=== PATIENT | female | born 1990 | race Caucasian/White ===

== ENCOUNTER → 2017-01-04 | Outpatient (CLI) | payer OTHER ==
--- NOTE | 2017-01-04 14:11 | CT ---
EXAMINATION TYPE: CT sinus wo con DATE OF EXAM: 01/04/2017 1:19 PM COMPARISON: NONE HISTORY: 26-year-old female with chronic sinusitis. Right side cheek lump. CT DLP: 525 mGycm Automated exposure control for dose reduction was used. TECHNIQUE: Noncontrast axial views of the paranasal sinuses were obtained. Coronal and sagittal recon structions performed. FINDINGS: There is mild mucosal thickening seen within the right frontal sinus, bilateral ethmoid air cells, an d both maxillary sinuses. There is no air-fluid level. Reactive becca- osteogenesis is not seen. There is no destruction of the osseous petersen of the paranasal sinuses. Opacification extends to include both osteomeatal complexes. There is leftward nasal septal deviation. The imaged brain, sella, skull base and orbits are normal in appearance. Mastoid air cells and middle ear cavities are well pneumatized. Reformatted images confirm above findings. IMPRESSION: 1. Mild chronic paranasal sinus disease involving the maxillary sinuses, ethmoid air cells, and infer ior right frontal sinus. 2. Leftward nasal septal deviation.
== END | disposition home or self-care (01) ==
LOC: RADCTMAIN 13:01
PROVIDERS: ATTEND Otolaryngology
DX: J32.0 Chronic maxillary sinusitis (principal); J32.1 Chronic frontal sinusitis; J32.2 Chronic ethmoidal sinusitis; J34.2 Deviated nasal septum
CPT/HCPCS: 70486

== ENCOUNTER 2017-08-22 09:54 | Day surgery (SDC) | payer MEDICAID, OTHER ==
[2017-08-17 10:15] VITALS: BMI 31.4
[~2017-08-22 09:54] MED LIST: DEXAMETHASONE SOD PHOSPHATE 10 MG/ML 1 ML VIAL IV ONE; DEXAMETHASONE SOD PHOSPHATE 4 MG/ML 1 ML VIAL IV ONE; FAMOTIDINE 20 MG/2 ML VIAL IV ONE; HYDROmorphone 0.5 MG/0.5 ML SYRINGE IVP PRN; MIDAZOLAM 2 MG/2 ML VIAL IV PRN; ONDANSETRON 4 MG/2 ML VIAL IVP ONE; SCOPOLAMINE 1.5MG/72HR PATCH TRANSDERM ONE; ceFAZolin 1,000 MG in DEXTROSE/WATER 1 50ML.BAG IV ONE
[2017-08-22] MEDS: OXYMETAZOLINE 0.05% NASL SPRAY 1 SPRAY BOTTLE NASAL ONE ×5 (10:22→10:43)
[2017-08-22] MEDS ORDERED: LIDOCAINE 1% 20 ML VIAL (10MG/ML) FOR IV START INTRADERMA ONE (10:38)
[2017-08-22] MEDS: LACTATED RINGERS 1,000 ML IV SCH ×2 (10:39→11:25)
[2017-08-22] MEDS ORDERED: PROPOFOL 10 MG/ML 20 ML VIAL IV ONE (11:25)
[2017-08-22] MEDS ORDERED: LIDOCAINE 1% INJ 10MG/ML (20 ML MDV) ONE (11:25)
[2017-08-22] MEDS ORDERED: HYDROmorphone (PF) 1 MG/ML ONE (11:25)
[2017-08-22] MEDS ORDERED: MIDAZOLAM 2 MG/2 ML VIAL ONE (11:25)
[2017-08-22] MEDS ORDERED: DEXAMETHASONE SOD PHOS (MDV) 100 MG/10 ML VIAL ONE (11:25)
[2017-08-22] MEDS ORDERED: SUCCINYLCHOLINE CHLORIDE 100 MG/5 ML SYR IV ONE (11:25)
[2017-08-22] MEDS ORDERED: fentaNYL (PF) 50 MCG/ML 2 ML AMP ONE (11:25)
[2017-08-22] MEDS ORDERED: LIDOCAINE 1%-EPI 1:100,000 20 ML VIAL SQ ONE ×2 (11:43)
[2017-08-22] MEDS ORDERED: BACITRACIN 500 UNIT/GM OINT 28.4 GM TUBE TOPICAL ONE (11:43)
--- NOTE | 2017-08-22 12:36 | P.OP ---
Date of Procedure: 08/22/17 Preoperative Diagnosis: Deviated nasal septum Inferior turbinate hypertrophy Chronic sinusitis Postoperative Diagnosis: Same Procedure(s) Performed: Septoplasty Outfracture and submucous resection of the inferior turbinates Bilateral endoscopic sinus surgery including bilateral maxillary antrostomy with removal of tissue from the maxillary sinuses, bilateral anterior and posterior ethmoidectomy, right frontal sinusotomy including balloon sinus plasty Anesthesia: SELVIN Surgeon: Mat Hu Estimated Blood Loss (ml): 10 Pathology: other (Nasal septal bone and cartilage and sinus contents) Condition: stable Disposition: PACU Indications for Procedure: This 26-year-old white female with a chronic history of nasal airway obstruction congestion recurrent and chronic sinusitis. Computed tomography scan showed deviated septum to the left as well as chronic sinusitis in the maxillary ethmoid and right frontal sinuses Operative Findings: Nasal septum deviated to the left obstructing approximate 75% of nasal airway, inferior turbinate hypertrophy bilaterally, mucosal thickening and small polyps in the maxillary sinuses bilaterally, mucosal thickening throughout the ethmoid sinuses bilaterally as well as mild right frontal coastal thickening, maxillary ostium are obstructed bilaterally Description of Procedure: The patient was brought in the operative suite and placed in a supine position. The patient underwent induction of general anesthesia with oral endotracheal intubation without difficulty. The patient was prepped and draped in usual aseptic fashion with the orbits in the operating field for entering throughout the case. The computed tomography scan was on the computer screen for review throughout the case also. 1% lidocaine with 1-1000 epinephrine was used submucosally both sides nasal septum lateral nasal wall and anterior tips the middle turbinates bilaterally. While this was taking vasoconstrictive effect the inferior turbinates were infractured with the [place] elevator. Partial submucous resection of the inferior turbinates was performed with the [place] wand loss ablating a portion of the submucosal soft tissue. The inferior turbinates were then outfractured with the [place] elevator. A left hemitransfixion incision was made with the mucoperichondrial mucoperiosteal flap on the left elevated. Bony cartilaginous junction was disarticulated and mucoperiosteal flap on the right was elevated. Bony nasal septal deformities were removed Janey forceps and an inferior cartilaginous strip was removed leaving a full 1.5 cm caudal strut. Checking intranasally this corrected the nasoseptal deformities and the hemitransfixion incision was closed with a running 4-0 chromic suture. Full 0 endoscopic evaluation was performed bilaterally. Beginning on the left the middle turbinate was medialized with the [place] elevator. The maxillary ostium was located with a ballpoint probe and infundibulotomy was performed followed by uncinectomy. The next ostium was enlarged at the expense of the anterior and posterior fontanelle taking care anteriorly not to injure the lacrimal bone. There were small polyps in the maxillary sinus which were removed under 30 endoscopic visualization with giraffe forceps. Anterior and posterior ethmoidectomy was then performed from anterior to posterior to Kiesha skull base and the roof the anterior ethmoid air cells were cleaned with up- biting Blakesley forceps from posterior to anterior. Nasal frontal duct was noted to be patent. Attention was then turned to the right where the procedures were followed as they were on the left. The nasal frontal duct on the right was obstructed and therefore was opened using ballpoint probe and giraffe forceps. There was mild mucosal thickening in the right frontal sinus after exploration. Again on the right medialization middle turbinate infundibulotomy uncinectomy maxillary antrostomy with removal of tissue from exercise sinuses anterior posterior ethmoidectomy were performed as they were on the left. Once this completed a pledget of standard nasal pore nasal dressing was placed in the middle meatus under direct visualization bilaterally and bilateral Hart airway splints coated bacitracin ointment were placed in nasal cavities and sutured trans-septally with a 4-0 nylon suture. Patient was suctioned in oral gastric fashion. The patient was then allowed to emerge from general anesthesia having tolerated procedure well was excised in the operating suite and transferred to the postop recovery area in satisfactory condition.
[2017-08-22 12:54] VITALS: TEMP 98.2
[2017-08-22] MEDS ORDERED: ONDANSETRON 4 MG/2 ML VIAL IVP ONE (12:54)
[2017-08-22] MEDS ORDERED: diphenhydrAMINE 50 MG/ML 1 ML VIAL IVP ONE (13:01)
[2017-08-22] MEDS ORDERED: IV FLUID CONTINUATION 1,000 ML IV ONE (14:00)
[2017-08-22] MEDS ORDERED: HYDROcodone/APAP 7.5-325MG 1 EACH TAB PO ONE (14:33)
[2017-08-22 14:40] VITALS: RESP 16
[2017-08-22 15:05] VITALS: BP 136/83
[2017-08-22 15:13] VITALS: PULSE 109
== END 2017-08-22 15:23 | disposition home or self-care (01) ==
LOC: OR 09:54
PROVIDERS: ATTEND Otolaryngology
DX: J34.2 Deviated nasal septum (principal); J34.3 Hypertrophy of nasal turbinates; J32.0 Chronic maxillary sinusitis; J32.2 Chronic ethmoidal sinusitis; J32.1 Chronic frontal sinusitis; J33.8 Other polyp of sinus; J45.909 Unspecified asthma, uncomplicated; G43.909 Migraine, unspecified, not intractable, without status migrainosus; Z79.2 Long term (current) use of antibiotics; Z79.1 Long term (current) use of non-steroidal anti-inflammatories (NSAID); Z79.52 Long term (current) use of systemic steroids; Z79.899 Other long term (current) drug therapy; Z91.011 Allergy to milk products; Z91.09 Other allergy status, other than to drugs and biological substances
CPT/HCPCS: 30520; 30140; 31267; 31255; 31276; 81025; 88305; 88300; J2250; J1200; J1100 ×2; J2405; J2001; J3010; J1170; J0690; J0330; J2704

== ENCOUNTER → 2017-12-12 | Outpatient (CLI) | payer MEDICAID, OTHER ==
[2017-12-12 13:00] LABS: T4, Free (Free Thyroxine) 0.79 ng/dL (0.78-2.19)
== END | disposition home or self-care (01) ==
LOC: LABWHC1 11:48
PROVIDERS: ATTEND Family Medicine
DX: E04.9 Nontoxic goiter, unspecified (principal)
CPT/HCPCS: 36415; 84439; 84443; 84481

== ENCOUNTER → 2017-12-20 | Outpatient (CLI) | payer MEDICAID, OTHER ==
--- NOTE | 2017-12-20 22:01 | US ---
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 GLAND SIZE: Right Lobe: 4.9 x 1.5 x 1.3 cm Overall Parenchyma: homogenous Left Lobe: 4.9 x 1.9 x 1.3 cm Overall Parenchyma: homogeneous Isthmus Thickness: 0.3 cm NODULES RIGHT: # of nodules measured on right: 0 LEFT: # of nodules measured on left: 0 ISTHMUS: # of nodules measured in the isthmus: 0 Bilateral neck scanned, no evidence of lymphadenopathy. Upper limits of normal in size seen bilaterally IMPRESSION: Prominent size of the thyroid gland. No focal nodule, no heterogeneity, and no increased vascularity.
== END | disposition home or self-care (01) ==
LOC: RADUSWWP 16:13
PROVIDERS: ATTEND Family Medicine
DX: E04.9 Nontoxic goiter, unspecified (principal)
CPT/HCPCS: 76536

== ENCOUNTER → 2018-06-30 | Outpatient (CLI) | payer MEDICAID, OTHER | END | disposition home or self-care (01) | LOC: LABWHC1 16:21 | PROVIDERS: ATTEND Obstetrics & Gynecology | DX: N91.2 Amenorrhea, unspecified (principal) | CPT/HCPCS: 36415; 84702 ==

== ENCOUNTER → 2018-08-08 | Outpatient (CLI) | payer MEDICAID, OTHER | END | disposition home or self-care (01) | LOC: LABWHC1 12:06 | PROVIDERS: ATTEND Obstetrics & Gynecology | DX: N97.0 Female infertility associated with anovulation (principal) | CPT/HCPCS: 36415; 84144 ==

== ENCOUNTER → 2018-09-29 | Outpatient (CLI) | payer MEDICAID, OTHER | LOC: LAB 10:12 → LABWHC1 10:16 | PROVIDERS: ATTEND Obstetrics & Gynecology | DX: N97.0 Female infertility associated with anovulation (principal) | CPT/HCPCS: 84144 ==

== ENCOUNTER → 2018-12-28 | Outpatient (CLI) | payer MEDICAID ==
--- NOTE | 2018-12-28 10:42 | US ---
EXAMINATION TYPE: US transvaginal DATE OF EXAM: 12/28/2018 COMPARISON: NONE CLINICAL HISTORY: N92.0 Menorrhagia. Heavy menses with large clots TECHNIQUE: Transvaginal (TV) Date of LMP: 2 weeks ago EXAM MEASUREMENTS: Uterus: 9.0 x 4.5 x 5.2 cm Endometrial Stripe: 1.1 cm Right Ovary: 3.5 x 1.8 x 2.0 cm Left Ovary: 4.1 x 2.3 x 2.8 cm 1. Uterus: Anteverted wnl 2. Endometrium: appears wnl 3. Right Ovary: multiple follicles 4. Left Ovary: complex mixed area left ovary = 2.1 x 1.5 x 2.0cm 5. Bilateral Adnexa: paraovarian cystic area right adnexa= 1.3 x 1.0 x 1.1cm 6. Posterior cul-de-sac: small amount of free fluid IMPRESSION: 1. Complex mixed lesion left ovary may reflect hemorrhagic cyst. Consider follow-up study in 6 weeks. Small amount of free fluid as discussed.
== END ==
LOC: RADUSWWP 09:30
PROVIDERS: ATTEND Obstetrics & Gynecology
DX: N83.9 Noninflammatory disorder of ovary, fallopian tube and broad ligament, unspecified (principal)
CPT/HCPCS: 76830

== ENCOUNTER → 2019-04-18 | Outpatient (CLI) | payer MEDICAID ==
[2019-04-18 10:29] LABS: HCT 38.4 % (34.0-46.0); HGB 13.1 gm/dL (11.4-16.0); MCH 29.9 pg (25.0-35.0); MCHC 34.2 g/dL (31.0-37.0); MCV 87.4 fL (80.0-100.0); Mean Platelet Volume 7.2; Platelet Count 345 k/uL (150-450); RBC 4.39 m/uL (3.80-5.40); RDW 13.9 % (11.5-15.5); WBC 13.2 k/uL (3.8-10.6)
[2019-04-18 16:31] LABS: African American GFR (CKD) 145.8 (60.0-200.0)
== END | disposition home or self-care (01) ==
LOC: LABWHC1 09:50
PROVIDERS: ATTEND Obstetrics & Gynecology
DX: Z34.81 Encounter for supervision of other normal pregnancy, first trimester (principal)
CPT/HCPCS: 36415; 82565; 82947; 85027; 86762; 86780; 86850; 86900; 86901; 87340

== ENCOUNTER → 2019-04-30 | Outpatient (CLI) | payer MEDICAID ==
--- NOTE | 2019-04-30 14:43 | US ---
EXAMINATION TYPE: Transabdominal DATE OF EXAM: 04/30/2019 11:04 AM COMPARISON: NONE CLINICAL HISTORY: O46.91 spotting first trimester. EXAM PERFORMED: Transabdominal (TA) EXAM MEASUREMENTS: GESTATIONAL AGE / DATING Physician Established: (10 weeks/5 days) EDC: 11/21/2019 Dates by LMP: (10 weeks/5 days) EDC: 11/21/2019 Dates by First Scan: No previous this is first scan Dates by Current Scan for: (11 weeks/3 days) EDC: 11/16/2019 MATERNAL ANATOMY Uterus: 12.9 x 7.3 x 8.4 cm Right Ovary: 3.5 x 1.8 x 1.8 cm Left Ovary: 2.9 x 2.3 x 3.5 cm Post CDS / Adnexa: wnl Presence of free fluid: none GESTATION / SURVEY CRL: 4.6 cm (11 weeks/3 days) Yolk Sac (normal less than 6mm): not seen Heart Rate: 161 bpm Rhythm: Normal IUP: Viable IUP Date of LMP: 02/14/2019 Viable IUP that correlates with LMP. IMPRESSION: Single viable intrauterine corresponding to ultrasound age of 11 weeks 3 days with estimate d date of delivery 11/16/2019
== END | disposition home or self-care (01) ==
LOC: RADUSWWP 10:46
PROVIDERS: ATTEND Obstetrics & Gynecology
DX: O46.91 Antepartum hemorrhage, unspecified, first trimester (principal); Z3A.11 11 weeks gestation of pregnancy
CPT/HCPCS: 76801

== ENCOUNTER → 2019-06-29 | Outpatient (CLI) | payer MEDICAID ==
--- NOTE | 2019-07-01 11:12 | US ---
EXAMINATION TYPE: US OB anatomy transabd DATE OF EXAM: 06/29/2019 COMPARISON: US HISTORY: 036.62X0 large for dates LGA TECHNIQUE: Transabdominal (TA) EXAM MEASUREMENTS: GESTATIONAL AGE / DATING Physician Established: (19 weeks/2 days) EDC: 11/21/2019 Dates by LMP: (19 weeks/2 days) EDC: 11/21/2019 Dates by First Scan: (20 weeks/0 days) EDC: 11/16/2019 Dates by Current Scan for: (19 weeks/0 days) EDC: 11/23/2019 SURVEY IUP: Single PLACENTA: Posterior PREVIA: No previa SANDY: 14.8 cm Normal CERVICAL LENGTH (transabdominal: norm > 3.0cm): 3.4 cm BIOMETRY PRESENTATION: Breech BPD: 4.3 cm 19 weeks / 0 days HC: 16.2 cm 19 weeks / 0 days AC: 14.1 cm 19 weeks / 4 days FL: 3.0 cm 19 weeks / 1 days ESTIMATED WEIGHT IN GRAMS: 285 grams ESTIMATED WEIGHT IN LBS/OZ: 0 lbs. 10 oz. WEIGHT PERCENTAGE BASED ON ESTABLISHED DATE: 47.2 % HC/AC: 1.14 Normal FL/AC: 21 Normal HEART RATE: 144 bpm RHYTHM: Normal ANATOMY SEEN (within normal limits): * Lateral Vent (< 1 cm) 0.7 cm * Cisterna Magna (< 1.1 cm) 0.4 cm * Nuchal Fold (< 0.6 cm) 0.3 cm * Cerebellum (varies with age) 1.9 cm Choroid Plexus (bilateral) Midline Falx Cavus Septi Pellucidi Four Chamber Heart Outflow tracts: LVOT/RVOT Stomach Situs Nose / Lips Diaphragm Kidneys (bilateral)= 4mm right renal pelvis Bladder Cord Insert Three Vessel Cord Longitudinal Spine Transverse Spine Arms (bilateral) Legs (bilateral) Single, viable IUP/ 4mm right renal pelvis, otherwise unremarkable study IMPRESSION: 1. Intrauterine gestation estimated at 19 weeks 0 days gestation based on the current ultrasound ty urements. Cardiac activity measures 144 bpm. 2. Minimal prominence of the renal pelvis. Follow-up can be performed. 3. Femur length to head circumference ratio is slightly elevated.
== END | disposition home or self-care (01) ==
LOC: RADUSWWP 15:32
PROVIDERS: ATTEND Obstetrics & Gynecology
DX: O36.62X0 Maternal care for excessive fetal growth, second trimester, not applicable or unspecified (principal); Z3A.19 19 weeks gestation of pregnancy
CPT/HCPCS: 76811

== ENCOUNTER → 2019-07-30 | Outpatient (CLI) | payer MEDICAID ==
--- NOTE | 2019-07-30 08:01 | US ---
EXAMINATION TYPE: US OB >= 14 wk fetus DATE OF EXAM: 07/30/2019 COMPARISON: Multiple US. Latest 06/29/19 CLINICAL HISTORY: Z36 Encounter for screening of mother Dilated renal pelvis seen on previous US. TECHNIQUE: Transabdominal (TA) GESTATIONAL AGE / DATING Physician Established: (23 weeks/5 days) EDC: 11/21/2019 Dates by LMP: (23 weeks/5 days) EDC: 11/21/2019 Dates by First Scan: (24 weeks/0 days) EDC: 11/16/2019 Dates by Current Scan: (23 weeks/6 days) EDC: 11/20/2019 BIOMETRY PRESENTATION: Vertex LIE: Longitudinal BPD: 5.9 cm 24 weeks / 0 days HC: 20.8 cm 22 weeks / 6 days AC: 19.8 cm 24 weeks / 3 days FL: 4.3 cm 23 weeks / 6 days ESTIMATED WEIGHT IN GRAMS: 655.2 grams ESTIMATED WEIGHT IN LBS/OZ: 1 lbs. 7 oz. WEIGHT PERCENTAGE BASED ON ESTABLISHED DATES: 57.7% HC/AC: 1.1 Normal FL/AC: 21.5 Normal HEART RATE: 144 bpm RHYTHM: Normal Dilated renal pelvis' noted again. Left kidney = 0.2 cm, Right Kidney = 0.35 cm IMPRESSION: Stable mild prominence of the left renal pelvis unchanged from prior exam.
== END ==
LOC: RADUSWWP 06:58
PROVIDERS: ATTEND Obstetrics & Gynecology
DX: O99.89 Other specified diseases and conditions complicating pregnancy, childbirth and the puerperium (principal); N28.89 Other specified disorders of kidney and ureter; Z3A.00 Weeks of gestation of pregnancy not specified
CPT/HCPCS: 76805

== ENCOUNTER → 2019-08-10 | Outpatient (CLI) | payer MEDICAID ==
[2019-08-10 08:23] LABS: HGB 10.4 gm/dL (11.4-16.0); MCH 29.4 pg (25.0-35.0); MCHC 32.6 g/dL (31.0-37.0); MCV 90.3 fL (80.0-100.0); Mean Platelet Volume 7.1; Platelet Count 224 k/uL (150-450); RBC 3.55 m/uL (3.80-5.40); RDW 12.8 % (11.5-15.5); WBC 9.5 k/uL (3.8-10.6)
[2019-08-10 12:12] LABS: ALT 10 U/L (8-44); AST 10 U/L (13-35); Alkaline Phosphatase 48 U/L (41-126); Bilirubin, Conjugated <0.20 mg/dL (0.20-0.40); Globulin 1.9 g/dL (1.6-3.3); Total Bilirubin 0.2 mg/dL (0.3-1.2); Total Protein 5.7 g/dL (6.2-8.2)
== END | disposition home or self-care (01) ==
LOC: LABWHC1 06:34
PROVIDERS: ATTEND Obstetrics & Gynecology
DX: Z34.82 Encounter for supervision of other normal pregnancy, second trimester (principal)
CPT/HCPCS: 36415; 80076; 82239; 82950; 85027

== ENCOUNTER → 2019-08-16 | Outpatient (CLI) | payer MEDICAID ==
[2019-08-16 11:33] LABS: Glucose 3 Hour, Gest 75 mg/dL
== END | disposition home or self-care (01) ==
LOC: LABWHC1 07:29
PROVIDERS: ATTEND Obstetrics & Gynecology
DX: O24.419 Gestational diabetes mellitus in pregnancy, unspecified control (principal)
CPT/HCPCS: 36415; 82951; 82952

== ENCOUNTER → 2019-08-28 | Outpatient (CLI) | payer MEDICAID ==
--- NOTE | 2019-08-28 10:37 | US ---
EXAMINATION TYPE: US OB >= 14 wk fetus DATE OF EXAM: 08/28/2019 COMPARISON: US 2018 CLINICAL HISTORY: Z36 follow up previous abn.US or re-evaluationRecheck kidneys TECHNIQUE: Transabdominal (TA) GESTATIONAL AGE / DATING Physician Established: (27 weeks/6 days) EDC: 11/21/2019 Dates by LMP: (27 weeks/6 days) EDC: 11/21/2019 Dates by First Scan: (28 weeks/4 days) EDC: Dates by Current Scan: (27 weeks/4 days) EDC: 11/23/2019 Beta HCG (if available): SURVEY IUP: Single PLACENTA: Posterior PREVIA: No Previa SANDY: 15.5 cm Normal CERVICAL LENGTH (transabdominal: norm > 3.0cm): 3.4 cm BIOMETRY PRESENTATION: Vertex BPD: 6.9 cm 27 weeks / 5 days HC: 25.7 cm 28 weeks / 0 days AC: 23.4 cm 27 weeks / 5 days FL: 5.3 cm 28 weeks / 0 days ESTIMATED WEIGHT IN GRAMS: 1136 grams ESTIMATED WEIGHT IN LBS/OZ: 2 lbs. 8 oz. WEIGHT PERCENTAGE BASED ON ESTABLISHED DATES: 37% HC/AC: 1.10 Normal FL/AC: 22.50 Normal HEART RATE: 132 bpm RHYTHM: Normal Viable single IUP measuring 27 weeks 4 days with a heart rate of 132bpm and an estimated delivery josette e of 11/23/2019, left renal pelvis = 0.4cm, right renal pelvis = 0.5cm IMPRESSION: Viable single IUP measuring 27 weeks 4 days with a heart rate of 132bpm and an estimated delivery josette e of 11/23/2019, left renal pelvis = 0.4cm, right renal pelvis = 0.5cm
== END | disposition home or self-care (01) ==
LOC: RADUSWWP 08:57
PROVIDERS: ATTEND Obstetrics & Gynecology
DX: Z36.9 Encounter for antenatal screening, unspecified (principal); Z3A.27 27 weeks gestation of pregnancy
CPT/HCPCS: 76805

== ENCOUNTER → 2019-08-28 | Outpatient (CLI) | payer MEDICAID ==
[2019-08-29 00:36] LABS: T4, Free (Free Thyroxine) 0.9 ng/dL (0.80-1.80)
[2019-08-29 01:19] LABS: Hemoglobin A1C 5.3 % (4.0-6.0)
== END | disposition home or self-care (01) ==
LOC: LABWHC1 16:12
PROVIDERS: ATTEND Internal Medicine
DX: O24.419 Gestational diabetes mellitus in pregnancy, unspecified control (principal); E03.9 Hypothyroidism, unspecified
CPT/HCPCS: 36415; 83036; 84439; 84443

== ENCOUNTER → 2019-09-28 | Outpatient (CLI) | payer MEDICAID ==
--- NOTE | 2019-09-28 22:48 | US ---
EXAMINATION TYPE: US OB >= 14 wk fetus DATE OF EXAM: 09/28/2019 COMPARISON: Prior ultrasound August 28, 2019 and older studies. CLINICAL HISTORY: O24.419 Gestational diabetes mellitus in Gestational diabetes TECHNIQUE: Transabdominal (TA) GESTATIONAL AGE / DATING Physician Established: (32 weeks/2 days) EDC: 11/21/19 Dates by LMP: (32 weeks/2 days) EDC: 11/21/19 Dates by First Scan: (33 weeks/0 days) EDC: 11/16/19 Dates by Current Scan: (33 weeks/5 days) EDC: 11/11/19 SURVEY IUP: Single PLACENTA: Posterior PREVIA: No Previa SANDY: 11.5 cm Normal CERVICAL LENGTH (transabdominal: norm > 3.0cm): 4.1 cm BIOMETRY PRESENTATION: Vertex LIE: Longitudinal BPD: 8.3 cm 33 weeks / 3 days HC: 29.8 cm 33 weeks / 0 days AC: 29.5 cm 33 weeks / 4 days FL: 6.7 cm 34 weeks / 4 days ESTIMATED WEIGHT IN GRAMS: 2256 grams ESTIMATED WEIGHT IN LBS/OZ: 5 lbs. 0 oz. WEIGHT PERCENTAGE BASED ON ESTABLISHED DATES: 83% HC/AC: 1.01 Normal FL/AC: 23% Normal HEART RATE: 140 bpm RHYTHM: Normal Single viable IUP 33wks/5days with MARVIN of 11/11/19. Left renal pelvis = 0.6cm and Right renal pelvi s = 0.5cm Single live intrauterine gestation is redemonstrated. Normal cephalic presentation is seen. No cervic al thinning. No placenta previa. Calculated amniotic fluid index within normal limits. biometry measurements concordant and felt within normal limits. Interval satisfactory growth noted. Persisten t prominence of bilateral renal pelvises is again demonstrated. IMPRESSION: As above.
== END | disposition home or self-care (01) ==
LOC: RADUSWWP 16:11
PROVIDERS: ATTEND Obstetrics & Gynecology
DX: O24.419 Gestational diabetes mellitus in pregnancy, unspecified control (principal)
CPT/HCPCS: 76805

== ENCOUNTER 2019-10-19 16:27 | Outpatient (CLI) | payer MEDICAID | END 2019-10-19 17:20 | disposition home or self-care (01) | LOC: FBPOP 16:27 | PROVIDERS: ATTEND Obstetrics & Gynecology | DX: O24.419 Gestational diabetes mellitus in pregnancy, unspecified control (principal); Z3A.00 Weeks of gestation of pregnancy not specified | CPT/HCPCS: 59025 ==

== ENCOUNTER → 2019-10-19 | Outpatient (CLI) | payer MEDICAID ==
--- NOTE | 2019-10-20 10:46 | US ---
EXAMINATION TYPE: US OB >= 14 wk fetus DATE OF EXAM: 10/19/2019 COMPARISON: None CLINICAL HISTORY: O36.63X0 LARGE FOR DATES Large for dates. TECHNIQUE: Transabdominal (TA) GESTATIONAL AGE / DATING Physician Established: (35 weeks/2 days) EDC: 11/21/2019 Dates by LMP: (35 weeks/2 days) EDC: 11/21/2019 Dates by First Scan: (11 weeks/3 days) EDC: 11/16/2019 Dates by Current Scan: (36 weeks/2 days) EDC: 11/14/2019 SURVEY IUP: Single PLACENTA: Posterior PREVIA: No Previa SANDY: 15.1 cm Normal CERVICAL LENGTH (transabdominal: norm > 3.0cm): Not well visualized due to shadowing. BIOMETRY PRESENTATION: Vertex BPD: 8.71cm 35 weeks / 2 days HC: 32.01 cm 36 weeks / 1 days AC: 32.52 cm 36 weeks / 4 days FL: 7.22 cm 37 weeks / 0 days ESTIMATED WEIGHT IN GRAMS: 2925 grams ESTIMATED WEIGHT IN LBS/OZ: 6 lbs. 7 oz. WEIGHT PERCENTAGE BASED ON ESTABLISHED DATES: 46% HC/AC: 8.98cm Normal FL/AC: 22% Normal HEART RATE: 142 bpm RHYTHM: Normal IMPRESSION: Limited survey, single viable intrauterine corresponding to ultrasound age 36 weeks 2 days with estimated date of delivery 11/14/2019 by today's exam
== END | disposition home or self-care (01) ==
LOC: RADUSWWP 15:37
PROVIDERS: ATTEND Obstetrics & Gynecology
DX: O36.63X0 Maternal care for excessive fetal growth, third trimester, not applicable or unspecified (principal); Z3A.36 36 weeks gestation of pregnancy
CPT/HCPCS: 76805

== ENCOUNTER 2019-10-22 15:54 | Outpatient (CLI) | payer MEDICAID | END 2019-10-22 16:44 | disposition home or self-care (01) | LOC: FBPOP 15:54 | PROVIDERS: ATTEND Obstetrics & Gynecology | DX: O24.419 Gestational diabetes mellitus in pregnancy, unspecified control (principal); Z3A.00 Weeks of gestation of pregnancy not specified | CPT/HCPCS: 59025 ==

== ENCOUNTER 2019-11-01 16:52 | Outpatient (CLI) | payer MEDICAID | END 2019-11-01 17:26 | disposition home or self-care (01) | LOC: FBPOP 16:52 | PROVIDERS: ATTEND Obstetrics & Gynecology | DX: O26.93 Pregnancy related conditions, unspecified, third trimester (principal); Z3A.37 37 weeks gestation of pregnancy | CPT/HCPCS: 59025 ==

== ENCOUNTER 2019-11-08 15:15 | Inpatient (IN) | payer MEDICAID ==
[2019-11-08 16:35] LABS: Basophils % (A) 0 %; Eosinophils # (A) 0.1 k/uL (0-0.7); Eosinophils % (A) 1 %; HCT 33.4 % (34.0-46.0); HGB 10.9 gm/dL (11.4-16.0); Lymphocytes # (A) 2.8 k/uL (1.0-4.8); Lymphocytes % (A) 24 %; MCH 28.4 pg (25.0-35.0); MCHC 32.7 g/dL (31.0-37.0); MCV 86.7 fL (80.0-100.0); Mean Platelet Volume 8.5; Monocytes # (A) 0.4 k/uL (0-1.0); Monocytes % (A) 4 %; Neutrophils # (A) 8.3 k/uL (1.3-7.7); Neutrophils % (A) 70 %; Platelet Count 238 k/uL (150-450); RBC 3.85 m/uL (3.80-5.40); RDW 13.5 % (11.5-15.5); WBC 11.9 k/uL (3.8-10.6)
[2019-11-08 16:37] LABS: Appearance,Urine Clear (Clear); Bilirubin,Urine Negative (Negative); Blood,Urine Negative (Negative); Color,Urine Light Yellow; Glucose,Urine (UA) Negative (Negative); Ketones,Urine Negative (Negative); Leukocyte Esterase,Urine Negative (Negative); Nitrite,Urine Negative (Negative); PH, Urine 6.5 (5.0-8.0); Protein,Urine Negative (Negative); Specific Gravity,Urine 1.012 (1.001-1.035); Urobilinogen,Urine <2.0 mg/dL (<2.0)
[2019-11-08 16:44] LABS: ALT 11 U/L (4-34); AST 21 U/L (14-36); African American GFR (CKD) >90 (>60 ml/min/1.73 sqM); Blood Urea Nitrogen 13 mg/dL (7-17); LDH 300 U/L (313-618); Non-African American GFR(CKD) >90 (>60 ml/min/1.73 sqM); Uric Acid 5.1 mg/dL (3.7-7.4)
[2019-11-08 16:51] LABS: Creatinine,Urine Random 59.1 mg/dL; Protein/Creatinine Ratio,Urine 0.135
--- NOTE | 2019-11-08 17:35 | P.HPOB ---
History of Present Illness H&P Date: 11/08/19 Chief Complaint: Hypertension, This patient is a pleasant 28 yr EDC 11/21/2019 estimated gestational age 38wks and 1/7 days who presented to L&D for a routine NST due to gestational DM and chronic HTN. Patient has been on Labetalol 100 BID throughout the and blood pressures have been normal. She also has been diagnosed with gestation DM and diet controlled followed by me and Dr. Cai. Plan was for induction next week, however BP is elevated times 2 today. Pre-eclampsia labs are normal without severe features. Due to persistent elevated BP however I am recommending admission and delivery in the morning, sooner if concerns. Patient also has a history of PROM at 35wks last and was on progesterone until 37wks. She was seeing repro-endo for infertility, but conceived after an HSG without assistance. Review of Systems Constitutional: Reports as per HPI Genitourinary: Reports Menstruation: Reports amenorrhea Past Medical History Past Medical History: Hypertension, Thyroid Disorder Additional Past Medical History / Comment(s): Gestational Diabetes, chronic HTN, hypothyroidism. History of Any Multi-Drug Resistant Organisms: None Reported Past Surgical History: Adenoidectomy Past Anesthesia/Blood Transfusion Reactions: No Reported Reaction Past Psychological History: No Psychological Hx Reported Smoking Status: Never smoker Past Alcohol Use History: None Reported - Past Family History Mother Family Medical History: No Reported History Medications and Allergies Home Medications Medication Instructions Recorded Confirmed Type Labetalol [Trandate] 100 mg PO BID 10/19/19 11/08/19 History Levothyroxine Sodium 25 mcg PO QAM 10/19/19 11/08/19 History Pnv No.95/Ferrous Fum/Folic AC 1 each PO HS 10/19/19 11/08/19 History [ Multivitamin Tablet] Allergies Allergy/AdvReac Type Severity Reaction Status Date / Time Environmental Allergy Mild See Comment Uncoded 11/08/19 15:33 Exam Intake and Output 11/08/19 11/08/19 11/08/19 06:59 14:59 22:59 Other: Weight 100.698 kg - OBG Physical Exam Abdomen: bowel sounds normal, no diffuse tenderness, no bruit present, no guarding noted, no hepatomegaly, no splenomegaly, no mass Vulva: both: normal Vagina: normal moisture, no discharge Cervix: no lesion (3 cm/ 50%/ -2), no discharge Uterus: enlarged (Fundal height is 38 cm) Results labs: B positive, Rubella indeterminate, HepB-RPR neg, glucola 150 with abnormal 3hr GTT, GBS negative Result Diagrams: 11/08/19 16:15 11/08/19 16:15 Abnormal Lab Results - Last 24 Hours (Table) 11/08/19 11/08/19 Range/Units 16:15 16:15 WBC 11.9 H (3.8-10.6) k/uL Hgb 10.9 L (11.4-16.0) gm/dL Hct 33.4 L (34.0-46.0) % Neutrophils # 8.3 H (1.3-7.7) k/uL Lactate Dehydrogenase 300 L (313-618) U/L Assessment and Plan Assessment: This is a pleasant 28 yr female 38 1/7wks with chronic HTN, gestation DM, hypothyroidism now with super-imposed gestational hypertension. No evidence of pre-eclampsia at this time. Plan per current recommendations is to proceed with delivery. I discussed with Luisana and she agrees. Will monitor closely overnite and proceed with induction in the morning, earlier if indication. (1) 38 weeks gestation of Current Visit: Yes Status: Acute Code(s): Z3A.38 - 38 WEEKS GESTATION OF SNOMED Code(s): 56265207 (2) Chronic hypertension affecting Current Visit: Yes Status: Acute Code(s): O10.919 - UNSP PRE-EXISTING HTN COMP , UNSP TRIMESTER SNOMED Code(s): 97568112 (3) Gestational diabetes Current Visit: Yes Status: Acute Code(s): O24.419 - GESTATIONAL DIABETES MELLITUS IN , UNSP CONTROL SNOMED Code(s): 75029469 (4) Rubella non-immune status, antepartum Current Visit: Yes Status: Acute Code(s): O99.89 - OTH DISEASES AND CONDITIONS COMPL PREG/CHLDBRTH; Z28.3 - UNDERIMMUNIZATION STATUS SNOMED Code(s): 299432055
[2019-11-08] MEDS: LABETALOL 100 MG TAB PO SCH (20:57)
[2019-11-09] MEDS ORDERED: TERBUTALINE 1 MG/ML VIAL SQ PRN (05:21)
[2019-11-09] MEDS ORDERED: METHYLERGONOVINE 0.2 MG/ML 1 ML AMP IM PRN (05:21)
[2019-11-09] MEDS ORDERED: OXYTOCIN 10 UNIT/ML 1 ML VIAL IM PRN (05:21)
[2019-11-09] MEDS ORDERED: LIDOCAINE 0.5% (PF) 5 MG/ML (50 ML SDV) SQ PRN (05:21)
[2019-11-09] MEDS ORDERED: OXYTOCIN 30 UNITS/500 ML NS 30 UNIT in SALINE 1 500ML.BAG IV SCH (05:21)
[2019-11-09] MEDS ORDERED: CARBOPROST TROMETHAMINE 250 MCG/ML 1 ML AMP IM PRN (05:21)
--- NOTE | 2019-11-09 05:47 | P.MSEPDOC ---
Presenting Problems - Arrival Data Date of Arrival on Unit: 11/08/19 Time of Arrival on Unit: 15:10 Mode of Transport: Ambulatory - Complaint OB-Reason for Admission/Chief Complaint: NST Comment: pt initially came in for ordered nst, 1st bp was elevated so ended up doing PIH workup Medical History - Information : 2 Para: 1 Term: 0 : 1 Abortions: Spontaneous or Elective: 0 Number of Living Children: 1 - Gestational Age Gestational Age by MARVIN (wks/days): 38 Weeks and 1 Days - History Complications: Chronic HTN, GDM Review of Systems - Review of Systems Constitutional: No problems Breast: No problems ENT: No problems Cardiovascular: No problems Respiratory: No problems Gastrointestinal: No problems Genitourinary: No problems Musculoskeletal: No problems Neurological: No problems Skin: No problems Vital Signs - Temperature Temperature: 97.3 F Temperature Source: Temporal Artery Scan - Pulse Right Brachial Pulse Rate: 78 Pulse Assessment Method: Automatic Cuff - Respirations Respiratory Rate: 18 Oxygen Delivery Method: Room Air - Blood Pressure Right Arm Blood Pressure: 121/58 Blood Pressure Mean: 79 Blood Pressure Source: Automatic Cuff Medical Screen Scoring (Pre) - Cervical Exam Dilation: Exam Deferred Effacement: Exam Deferred Membranes: Intact - Uterine Contractions Frequency: > 5 minutes apart = 1 Duration: > 40 seconds = 2 Intensity: N/A - Maternal Vital Signs Maternal Temperature: N/A Maternal Blood Pressure: Systolic >139 = 2 Signs of Preeclampsia: N/A Maternal Respirations: N/A - Maternal Trauma Maternal Trauma: N/A - Assessment - Baby A Baseline FHR: 125 Heart Rate - NICHD Category: Category I (Normal) = 0 NST: Reactive Position: N/A Station: N/A - Total Score - Baby A Total Score - Baby A: 5 - Total Score - Baby B Total Score - Baby B: 5 - Total Score - Baby C Total Score - Baby C: 5 - Level of Risk - Baby A Level of Risk - Baby A: Low (0-5) - Level of Risk - Baby B Level of Risk - Baby B: Low (0-5) - Level of Risk - Baby C Level of Risk - Baby C: Low (0-5) Physician Notification (Pre) - Physician Notified Physician Notified Date: 11/08/19 Physician Notified Time: 17:00 New Order Received: Yes - Notification Comment Comment: admitted pt overnight to watch bp's and start induction in AM Disposition - Disposition OB Disposition: Admit, LDRP Suite I agree with the RN Medical Screening Exam: Yes Risk & Benefit of care provided described in d/c instruction: Yes Diagnosis: GESTATIONAL HTN W/O SIGNIFICANT PROTEINURIA, THIRD TRIMESTER
[2019-11-09] MEDS: LACTATED RINGERS 1,000 ML IV SCH ×3 (06:11→16:00)
[2019-11-09] MEDS: LABETALOL 100 MG TAB PO SCH ×2 (06:23→20:33)
[2019-11-09 06:32] LABS: Basophils % (A) 0 %; Eosinophils # (A) 0.1 k/uL (0-0.7); Eosinophils % (A) 1 %; HCT 33.6 % (34.0-46.0); HGB 11.1 gm/dL (11.4-16.0); Lymphocytes # (A) 2.7 k/uL (1.0-4.8); Lymphocytes % (A) 28 %; MCH 28.7 pg (25.0-35.0); MCHC 33.2 g/dL (31.0-37.0); MCV 86.4 fL (80.0-100.0); Mean Platelet Volume 8.1; Monocytes # (A) 0.4 k/uL (0-1.0); Monocytes % (A) 4 %; Neutrophils # (A) 6.4 k/uL (1.3-7.7); Neutrophils % (A) 65 %; Platelet Count 222 k/uL (150-450); RBC 3.89 m/uL (3.80-5.40); RDW 13.8 % (11.5-15.5); WBC 9.8 k/uL (3.8-10.6)
[2019-11-09] MEDS ORDERED: fentaNYL (PF) 50 MCG/ML 5 ML AMP ONE (11:01)
[2019-11-09] MEDS ORDERED: SODIUM CHLORIDE 0.9% 100 ML BAG ONE (11:01)
[2019-11-09] MEDS ORDERED: ROPIVACAINE 5MG/ML 20ML VIAL ONE (11:01)
[2019-11-09 12:59] LABS: Hemoglobin A1C 5.3 % (4.0-6.0)
--- NOTE | 2019-11-09 18:28 | P.PROBDLV ---
Vaginal Delivery Note - . Vaginal Delivery Note: Normal vaginal delivery viable male infant Apgars are 7 and 8 delivery time is 1806 hrs. Please see dictated H&P for intimate details of this patient's admission. In brief summary this is a pleasant 28-year-old 2 para 1 female 38-2/7 weeks gestation who presented yesterday for nonstress test for hypertension and diabetes was noted to have significant blood pressure elevation of 162/78. Patient's preeclampsia labs are negative. However repeat blood pressure did show persistent elevation and I recommend she proceed with delivery.'s morning patient is 3 cm dilated is artificial rupture membranes for clear fluid. Labor is induced with Pitocin. Patient's labor progresses and she does get an epidural for pain control. Patient quickly gets to complete. She does push one time and pushes the head to the perineum. Posterior perineum was supporte d we have controlled delivery of the 's head over the intact perineum. Mouth and nares are bulb suctioned. There is no evidence of a nuchal cord. With gentle downward traction we then have deliver the anterior and posterior shoulder and rest this 's body. This is a viable male Apgars are 7 and 8 delivery time is 1806 hrs. does have some facial bruising but otherwise appears normal. The infant is late the mother's abdomen and the cord was doubly clamped and cut. Cenestin spontaneously delivered intact. Estimated blood loss is 100 mL. Inspection of the perineum shows a first-degree lacerations repaired with 3-0 Vicryl usual fashion excellent reapproximation is noted. All counts are correct 3. There are no complications.
[2019-11-09] MEDS ORDERED: diphenhydrAMINE 50 MG/ML 1 ML VIAL IVP PRN (18:30)
[2019-11-09] MEDS ORDERED: LANOLIN CREAM 5 GM TUBE TOPICAL PRN (18:30)
[2019-11-09] MEDS ORDERED: diphenhydrAMINE 25 MG CAP PO PRN (18:30)
[2019-11-09] MEDS ORDERED: BISACODYL 10 MG SUPP RECTAL PRN (18:30)
[2019-11-09] MEDS ORDERED: HYDROCORTISONE 2.5% RECTAL CREAM 30 GM TUBE RECTAL PRN (18:30)
[2019-11-09] MEDS ORDERED: OXYTOCIN 20 UNITS/1000 ML NS 1,000 ML IV SCH (18:30)
[2019-11-09] MEDS ORDERED: SIMETHICONE 80 MG CHEWABLE PO PRN (18:30)
[2019-11-09] MEDS ORDERED: WITCH HAZEL 1 EACH MED..PAD TOPICAL PRN (18:30)
[2019-11-09] MEDS ORDERED: BENZOCAINE/MENTHOL SPRAY 1 GM/SPRAY AEROSOL TOPICAL PRN (18:30)
[2019-11-09] MEDS ORDERED: ZOLPIDEM 5 MG TAB PO PRN (18:30)
[2019-11-09] MEDS ORDERED: MEASLES-MUMPS-RUBELLA VACC/PF 12,500 UNIT/0.5 ML VIAL SQ ONE (18:33)
[2019-11-09] MEDS: IBUPROFEN 600 MG TAB PO PRN (18:42)
[2019-11-09] MEDS: SENNOSIDES-DOCUSATE SODIUM 1 EACH TAB PO SCH ×2 (19:52→23:04)
[2019-11-09] MEDS: ACETAMINOPHEN TAB 325 MG TAB PO PRN (23:03)
[2019-11-10] MEDS: IBUPROFEN 600 MG TAB PO PRN ×4 (03:39→21:48)
[2019-11-10 08:58] VITALS: RESP 16
[2019-11-10] MEDS: SENNOSIDES-DOCUSATE SODIUM 1 EACH TAB PO SCH ×2 (09:00→19:43)
[2019-11-10] MEDS: LABETALOL 100 MG TAB PO SCH ×2 (09:00→21:46)
--- NOTE | 2019-11-10 09:32 | P.PNOBGVD ---
Subjective - Subjective Principal diagnosis: day 1 Interval history: Marj is doing well day 1. Her blood pressures are remaining much improved over yesterday. We'll continue labetalol. All questions are answered for her at this time. We'll likely discharge to home tomorrow with continued stability. Patient reports: Reports appetite normal, Reports voiding normally, Reports pain well controlled, Reports ambulating normally Bastian: doing well Objective - Latest Vital Signs Latest vital signs: Vital Signs Temp Pulse Resp BP Pulse Ox 11/10/19 08:00 98.6 F 90 16 115/60 11/10/19 04:00 98.0 F 82 15 121/65 98 11/10/19 00:00 98.2 F 94 16 131/71 96 11/09/19 20:30 99.0 F 88 16 135/77 11/09/19 20:00 99.2 F 90 16 117/68 11/09/19 19:30 98.7 F 97 16 126/66 11/09/19 19:15 98.9 F 95 16 127/68 11/09/19 19:00 82 15 133/68 11/09/19 18:45 82 16 132/77 11/09/19 18:30 97.4 F L 86 15 129/75 Intake and Output 11/09/19 11/10/19 11/10/19 22:59 06:59 14:59 Other: # Voids 2 - Exam Lungs: bilateral: normal Chest: Normal S1, Normal S2 Extremities: Present: normal Abdomen: Present: normal appearance, soft Uterus: Present: normal, firm
[2019-11-10] MEDS: ACETAMINOPHEN TAB 325 MG TAB PO PRN ×2 (12:41→19:42)
[2019-11-11] MEDS: IBUPROFEN 600 MG TAB PO PRN ×2 (07:15→13:03)
[2019-11-11] MEDS: LABETALOL 100 MG TAB PO SCH (09:16)
--- NOTE | 2019-11-11 10:25 | P.DS ---
Providers Date of admission: 11/08/19 16:58 Expected date of discharge: 11/11/19 Attending physician: Thai Cramer Primary care physician: Thai Cramer [facility] Hospital Course: Marj is doing very well post day 2. She is involuting, voiding and tolerating her diet. She voices no complaints and is stable for discharge this time. Heart regular, lungs clear, extremities without pain. Abdomen soft uterus is firm and lochia is reported light. Assessment day 2. Plan discharged home follow up with Dr. Garcia in 6 weeks. Prescription for breast pump was provided. Prescription for Motrin provided. Discharge instructions were thoroughly reviewed and all questions were answered for her prior to her discharge. Patient Condition at Discharge: Good Plan - Discharge Summary New Discharge Prescriptions: New Ibuprofen [Motrin] 600 mg PO Q6HR PRN #30 tab PRN Reason: Mild Pain Or Fever >= 100.5 No Action Labetalol [Trandate] 100 mg PO BID Pnv No.95/Ferrous Fum/Folic AC [ Multivitamin Tablet] 1 each PO HS Levothyroxine Sodium 25 mcg PO QAM Discharge Medication List Labetalol [Trandate] 100 mg PO BID 10/19/19 [History] Levothyroxine Sodium 25 mcg PO QAM 10/19/19 [History] Pnv No.95/Ferrous Fum/Folic AC [ Multivitamin Tablet] 1 each PO HS 10/19/19 [History] Ibuprofen [Motrin] 600 mg PO Q6HR PRN #30 tab 11/09/19 [Rx] Follow up Appointment(s)/Referral(s): Thai Cramer MD [Primary Care Provider] - 12/27/19 8:45 am Patient Instructions/Handouts: Vaginal Delivery (DC) Activity/Diet/Wound Care/Special Instructions: No intercourse or anything per vagina for 6 weeks. Please call if any fever, chills, excessive vaginal bleeding, and/or abdominal pain. Discharge Disposition: HOME SELF-CARE
[2019-11-11 15:47] VITALS: BP 137/88; PULSE 84; TEMP 98.5
[2019-11-11] MEDS: ACETAMINOPHEN TAB 325 MG TAB PO PRN (17:49)
[2019-11-11] MEDS: SENNOSIDES-DOCUSATE SODIUM 1 EACH TAB PO SCH ×2 (19:09→20:28)
== END 2019-11-11 20:00 | disposition home or self-care (01) | DRG 807 ==
LOC: FBPOP 15:15 → 4FBP 16:58
PROVIDERS: ADMIT Obstetrics & Gynecology; ATTEND Obstetrics & Gynecology
PROC: 10E0XZZ Delivery of Products of Conception, External Approach (ICD-10-PCS; principal; 2019-11-09)
PROC: 3E033VJ Introduction of Other Hormone into Peripheral Vein, Percutaneous Approach (ICD-10-PCS; 2019-11-09)
PROC: 10907ZC Drainage of Amniotic Fluid, Therapeutic from Products of Conception, Via Natural or Artificial Opening (ICD-10-PCS; 2019-11-09)
PROC: 0HQ9XZZ Repair Perineum Skin, External Approach (ICD-10-PCS; 2019-11-09)
PROC: 3E0R3BZ Introduction of Anesthetic Agent into Spinal Canal, Percutaneous Approach (ICD-10-PCS; 2019-11-09)
PROC: 3E0134Z Introduction of Serum, Toxoid and Vaccine into Subcutaneous Tissue, Percutaneous Approach (ICD-10-PCS; 2019-11-09)
DX: O10.92 Unspecified pre-existing hypertension complicating childbirth (principal); Z37.0 Single live birth; O24.420 Gestational diabetes mellitus in childbirth, diet controlled; O70.0 First degree perineal laceration during delivery; O99.284 Endocrine, nutritional and metabolic diseases complicating childbirth; E03.9 Hypothyroidism, unspecified; Z79.890 Hormone replacement therapy; Z79.899 Other long term (current) drug therapy; Z3A.38 38 weeks gestation of pregnancy; Z23 Encounter for immunization; Z28.3 Underimmunization status; Z87.51 Personal history of pre-term labor; Z88.9 Allergy status to unspecified drugs, medicaments and biological substances
CPT/HCPCS: 59025; 81003; 82565; 82570; 83036; 83615; 84156; 84450; 84460; 84520; 84550; 85025; 86850; 86900; 86901; 90707; 99215

== ENCOUNTER → 2020-04-25 | Outpatient (CLI) | payer MEDICAID ==
[2020-04-25 18:21] LABS: Hemoglobin A1C 5.2 % (4.0-6.0)
== END | disposition home or self-care (01) ==
LOC: LABWHC1 08:21
PROVIDERS: ATTEND Internal Medicine
DX: O24.419 Gestational diabetes mellitus in pregnancy, unspecified control (principal); E03.9 Hypothyroidism, unspecified
CPT/HCPCS: 36415; 83036; 84439; 84443

== ENCOUNTER → 2020-05-21 | Outpatient (CLI) | payer MEDICAID ==
--- NOTE | 2020-05-22 07:40 | MR ---
EXAMINATION TYPE: MR knee LT wo con DATE OF EXAM: 05/21/2020 COMPARISON: Outside left knee x-ray April 22, 2020. HISTORY: Left knee pain, injured 6 weeks ago TECHNIQUE: Multiplanar, multisequence images of the knee is performed without IV contrast. FINDINGS: MEDIAL MENISCUS: Anterior and posterior horns are intact without tear. LATERAL MENISCUS: Anterior and posterior horns are intact without tear. CRUCIATE LIGAMENTS: The anterior and posterior cruciate ligaments are intact and unremarkable. COLLATERAL LIGAMENTS: The medial collateral ligament and lateral collateral ligament complex are inta ct and unremarkable. EXTENSOR MECHANISM: Visualized quadriceps and patellar tendons are intact. EFFUSION: Tiny suprapatellar joint effusion. POPLITEAL CYST: Small popliteal/aguila cyst measuring 3.7 cm long axis sagittal image 25. TRICOMPARTMENT SPACES: Tricompartment joint spaces are maintained. No significant spurring is seen. CARTILAGE: Tricompartment articular cartilage is preserved. BONE MARROW SIGNAL: Small focal area of low T1 signal seen best on coronal images 14 and 15 and sagit eun image 15 with surrounding T2 hyperintensity consistent with small subchondral fracture and adjace nt edema. OTHER: No additional significant abnormality is appreciated. IMPRESSION: 1. There is nondisplaced radiooccult subchondral intra-articular fracture central anterior aspect of the tibial plateau with adjacent osseous contusion. 2. No meniscal or ligamentous tear is seen. 3. Incidental small popliteal cyst.
== END | disposition home or self-care (01) ==
LOC: RADMRIMAIN 15:33
PROVIDERS: ATTEND Orthopaedic Surgery
DX: S82.145A Nondisplaced bicondylar fracture of left tibia, initial encounter for closed fracture (principal)

== ENCOUNTER → 2020-08-20 | Outpatient (CLI) | payer MEDICAID ==
[2020-08-20 08:45] LABS: Basophils % (A) 0 %; Eosinophils # (A) 0.1 k/uL (0-0.7); Eosinophils % (A) 1 %; HCT 38.6 % (34.0-46.0); HGB 13.1 gm/dL (11.4-16.0); Lymphocytes # (A) 2.8 k/uL (1.0-4.8); Lymphocytes % (A) 28 %; MCH 30.9 pg (25.0-35.0); MCV 90.8 fL (80.0-100.0); Mean Platelet Volume 7.4; Monocytes # (A) 0.4 k/uL (0-1.0); Monocytes % (A) 4 %; Neutrophils # (A) 6.4 k/uL (1.3-7.7); Neutrophils % (A) 64 %; Platelet Count 291 k/uL (150-450); RBC 4.25 m/uL (3.80-5.40); RDW 12.5 % (11.5-15.5)
[2020-08-20 15:20] LABS: African American GFR (CKD) 137.6 (60.0-200.0); Albumin 4.5 g/dL (3.80-4.90); Albumin/Globulin Ratio 1.8 (1.60-3.17); Anion Gap 9.9 mmol/L (4.00-12.00); BUN/Creat Ratio 18.57 Ratio (12.00-20.00); Calcium 9.2 mg/dL (8.7-10.3); Carbon Dioxide 25.1 mmol/L (21.6-31.8); Chol/HDL Ratio 4.22; Globulin 2.5 g/dL (1.6-3.3); Non-African American GFR(CKD) 118.7 (60.0-200.0); Potassium 4.3 mmol/L (3.5-5.5); Total Bilirubin 0.3 mg/dL (0.3-1.2)
== END | disposition home or self-care (01) ==
LOC: LABWHC1 08:23
PROVIDERS: ATTEND Family Medicine
DX: Z00.00 Encounter for general adult medical examination without abnormal findings (principal)
CPT/HCPCS: 36415; 80053; 80061; 84443; 84481; 85025

== ENCOUNTER → 2020-09-18 | Outpatient (CLI) | payer MEDICAID ==
--- NOTE | 2020-09-18 15:30 | US ---
EXAMINATION TYPE: US transvaginal DATE OF EXAM: 09/18/2020 COMPARISON: US 12/28/2018 CLINICAL HISTORY: R10.2 PELVIC PAIN. TECHNIQUE: . Transvaginal sonographic images of the pelvis were acquired. Date of LMP: 3 weeks ago EXAM MEASUREMENTS: Uterus: 8.2 x 4.3 x 4.8 cm Endometrial Stripe: 0.5 cm Right Ovary: 2.3 x 1.2 x 1.2 cm Left Ovary: 3.8 x 3.4 x 3.8 cm 1. Uterus: Anteverted wnl 2. Endometrium: wnl 3. Right Ovary: wnl 4. Left Ovary: Cyst visualized measuring 3.0 x 3.0 x 2.9 cm 5. Bilateral Adnexa: wnl 6. Posterior cul-de-sac: wnl Heterogeneous uterus. No suspicious endometrial thickening. No free fluid. Left ovary has a 3.0 cm simple appearing thin-walled cyst. Right ovary shows tiny peripheral follicle s. IMPRESSION: Incidental 3.0 cm thin-walled cyst left ovary.
== END | disposition home or self-care (01) ==
LOC: RADUSWWP 14:44
PROVIDERS: ATTEND Obstetrics & Gynecology
DX: N83.202 Unspecified ovarian cyst, left side (principal)
CPT/HCPCS: 76830

== ENCOUNTER → 2020-10-30 | Outpatient (CLI) | payer MEDICAID ==
[2020-10-31 03:41] LABS: Clam IgE <0.10 kU/L; Egg White IgE <0.10 kU/L; Shrimp IgE <0.10 kU/L; Soybean IgE <0.10 kU/L
[2020-10-31 03:42] LABS: Scallop IgE <0.10 kU/L; Walnut IgE (Food) <0.10 kU/L
[2020-10-31 03:43] LABS: Codfish IgE <0.10 kU/L
[2020-10-31 03:44] LABS: Peanut IgE <0.10 kU/L
== END | disposition home or self-care (01) ==
LOC: LABWHC1 15:39
PROVIDERS: ATTEND Family Medicine
DX: R19.7 Diarrhea, unspecified (principal)
CPT/HCPCS: 36415; 82785; 86003

== ENCOUNTER → 2020-10-30 | Outpatient (CLI) | payer MEDICAID ==
--- NOTE | 2020-10-31 07:33 | US ---
EXAMINATION TYPE: US transvaginal DATE OF EXAM: 10/30/2020 COMPARISON: 09/18/2020 CLINICAL HISTORY: N83.20 left ovarian cyst. Hx of ovarian cyst. TECHNIQUE: Transvaginal (TV). EXAM MEASUREMENTS: Uterus: 8.1 x 4.7 x 4.8 cm Endometrial Stripe: .6 cm Right Ovary: 3.7 x 2.9 x 3.0 cm 1. Uterus: Anteverted wnl 2. Endometrium: wnl 3. Right Ovary: Cystic area 3.2 x 2.4 x 2.6 cm. 4. Left Ovary: Obscured by overlying bowel gas 5. Bilateral Adnexa: wnl 6. Posterior cul-de-sac: wnl IMPRESSION: 1. Persistent cystic lesion left ovary measuring 3.2 x 2.4 x 2.6 cm. Continued follow-up until resolu tion is advised.
== END | disposition home or self-care (01) ==
LOC: RADUSWWP 15:48
PROVIDERS: ATTEND Obstetrics & Gynecology
DX: N83.202 Unspecified ovarian cyst, left side (principal)
CPT/HCPCS: 76830

== ENCOUNTER 2020-11-12 07:22 | Day surgery (SDC) | payer MEDICAID ==
[2020-11-10 12:03] VITALS: BMI 33.6
[~2020-11-12 07:22] MED LIST changes: -DEXAMETHASONE SOD PHOSPHATE 10 MG/ML 1 ML VIAL IV ONE; -DEXAMETHASONE SOD PHOSPHATE 4 MG/ML 1 ML VIAL IV ONE; -FAMOTIDINE 20 MG/2 ML VIAL IV ONE; -HYDROmorphone 0.5 MG/0.5 ML SYRINGE IVP PRN; +LACTATED RINGERS 1,000 ML IV SCH; -MIDAZOLAM 2 MG/2 ML VIAL IV PRN; -ONDANSETRON 4 MG/2 ML VIAL IVP ONE; -SCOPOLAMINE 1.5MG/72HR PATCH TRANSDERM ONE; -ceFAZolin 1,000 MG in DEXTROSE/WATER 1 50ML.BAG IV ONE
[2020-11-12] MEDS ORDERED: LACTATED RINGERS 1,000 ML IV ONE (07:30)
[2020-11-12 07:48] VITALS: RESP 16; TEMP 98.4
[2020-11-12] MEDS ORDERED: PROPOFOL 10 MG/ML 20 ML VIAL IV ONE (08:02)
[2020-11-12] MEDS ORDERED: LIDOCAINE 1% INJ 10MG/ML (20 ML MDV) ONE (08:02)
--- NOTE | 2020-11-12 08:20 | P.PCN ---
Date of Procedure: 11/12/20 Procedure(s) Performed: BRIEF HISTORY: Patient is a 29-year-old pleasant female scheduled for an elective colonoscopy as a part of evaluation of intermittent lower abdominal pain associated with alternating diarrhea and constipation for the last 2 months duration. She had couple of episodes of rectal bleeding. She has no family history of inflammatory bowel disease. Procedure PERFORMED: Colonoscopy With random biopsy . PREOPERATIVE DIAGNOSIS: . Alternating diarrhea and constipation with intermitten t lower abdominal pain IV sedation per Anesthesia. PROCEDURE: After informed consent was obtained, the patient, was brought into the endoscopy unit. IV sedation was administered by Anesthesia under continuous monitoring. Digital rectal examination was normal. Initially the Olympus CF-160 flexible video colonoscope was then inserted in the rectum, gradually advanced into the cecum without any difficulty. Careful examination was performed as the scope was gradually being withdrawn. Ileocecal valve and the appendiceal orifice were visualized and appeared normal. Prep was excellent. terminal ileum was intubated and 20 cm visualized and appeared normal. Random biopsies were done from the terminal ileum. Mucosa of the cecum, ascending colon, transverse colon, descending colon, sigmoid colon, and rectum appeared normal. random biopsies were done from ascending and descending colon to rule out microscopic/collagenous colitis. Retroflexion was performed in the rectum and no lesions were seen. The patient tolerated the procedure well. IMPRESSION: Normal-appearing colon from rectum to cecum with no evidence of colitis or colorectal neoplasia . Normal terminal ileum. RECOMMENDATIONS: Findings of this examination were discussed with the patient as well as a family. She was advised to follow with the biopsy results. Her symptoms are suggestive of irritable bowel syndrome and she was advised to continue with a high-fiber diet and take fiber supplements on a regular basis..
[2020-11-12 08:59] VITALS: BP 126/70; PULSE 81
== END 2020-11-12 09:05 | disposition home or self-care (01) ==
LOC: ORWHC2ENDO 07:22
PROVIDERS: ATTEND Internal Medicine Gastroenterology
DX: K62.5 Hemorrhage of anus and rectum (principal); R19.4 Change in bowel habit; K59.00 Constipation, unspecified; I10 Essential (primary) hypertension; J45.909 Unspecified asthma, uncomplicated; Z98.890 Other specified postprocedural states; Z79.899 Other long term (current) drug therapy
CPT/HCPCS: 81025; 88305; 45380; J2001; J2704

== ENCOUNTER 2020-11-14 23:42 | Emergency (ER) | payer MEDICAID ==
[2020-11-15] VITALS: TEMP 99.2
[2020-11-15 00:38] LABS: Basophils % (A) 0 %; Eosinophils # (A) 0.2 k/uL (0-0.7); Eosinophils % (A) 2 %; HCT 37.6 % (34.0-46.0); HGB 13.1 gm/dL (11.4-16.0); Lymphocytes # (A) 4.3 k/uL (1.0-4.8); Lymphocytes % (A) 39 %; MCH 30.8 pg (25.0-35.0); MCHC 34.9 g/dL (31.0-37.0); MCV 88.2 fL (80.0-100.0); Mean Platelet Volume 7.3; Monocytes # (A) 0.5 k/uL (0-1.0); Monocytes % (A) 4 %; Neutrophils # (A) 5.9 k/uL (1.3-7.7); Neutrophils % (A) 53 %; Platelet Count 314 k/uL (150-450); RBC 4.26 m/uL (3.80-5.40)
[2020-11-15] MEDS ORDERED: HYDROmorphone 0.5 MG/0.5 ML SYRINGE IVP STA (00:42)
[2020-11-15] MEDS ORDERED: ONDANSETRON 4 MG/2 ML VIAL IVP STA (00:42)
[2020-11-15 00:43] LABS: Amorphous Sediment,Urine Few /hpf; Appearance,Urine Cloudy (Clear); Bacteria,Urine Rare /hpf; Bilirubin,Urine Negative (Negative); Blood,Urine Moderate (Negative); Color,Urine Yellow; Glucose,Urine (UA) Negative (Negative); Ketones,Urine Negative (Negative); Leukocyte Esterase,Urine Moderate (Negative); Mucus,Urine Rare /hpf; Nitrite,Urine Negative (Negative); PH, Urine 5.5 (5.0-8.0); Protein,Urine Trace (Negative); RBC,Urine 5 /hpf (0-5); Specific Gravity,Urine 1.028 (1.001-1.035); Squamous Epithelial Cell,Urine 12 /hpf (0-4); Urobilinogen,Urine <2.0 mg/dL (<2.0); WBC,Urine 49 /hpf (0-5)
[2020-11-15 00:59] LABS: ALT 17 U/L (4-34); AST 21 U/L (14-36); African American GFR (CKD) >90 (>60 ml/min/1.73 sqM); Albumin 4.5 g/dL (3.5-5.0); Alkaline Phosphatase 57 U/L (38-126); Amylase 46 U/L (30-110); Anion Gap 14 mmol/L; Blood Urea Nitrogen 14 mg/dL (7-17); Calcium 10.2 mg/dL (8.4-10.2); Carbon Dioxide 16 mmol/L (22-30); Chloride 107 mmol/L (98-107); Glucose 138 mg/dL (74-99); Lipase 160 U/L (23-300); Non-African American GFR(CKD) >90 (>60 ml/min/1.73 sqM); Potassium 4.3 mmol/L (3.5-5.1); Sodium 137 mmol/L (137-145); Total Bilirubin 0.3 mg/dL (0.2-1.3)
--- NOTE | 2020-11-15 01:13 | CT ---
EXAM: CT Abdomen and Pelvis With Intravenous Contrast CLINICAL HISTORY: ITS.REASON CT Reason: right sided abdominal pain TECHNIQUE: Axial computed tomography images of the abdomen and pelvis with intravenous contrast. CTDI is 27.57 mGy and DLP is 1254.3 mGy-cm. This CT exam was performed using one or more of the following dose reduction techniques: automated exposure control, adjustment of the mA and/or kV according to patient size, and/or use of iterative reconstruction technique. COMPARISON: 10/30/2020. FINDINGS: Lung bases: Unremarkable. No mass. No consolidation. Pleural space: No pleural effusions. Heart: Heart is normal in size. ABDOMEN: Liver: Mild fatty liver. The liver and the spleen enhance uniformly. Gallbladder and bile ducts: The gallbladder is mildly distended with inflammatory changes at the fundal region of the gallbladder. The possibility of early acute cholecystitis is raised. Ultrasound imaging of the right upper quadrant is highly advised for further assessment. No ductal dilation. Pancreas: See below. Spleen: See above. Adrenals: The adrenal glands, the head, body, tail of the pancreas are unremarkable. Kidneys and ureters: Both kidneys are shown to excrete contrast bilaterally without renal calculus or hydronephrosis per Stomach and bowel: Moderate quantity of stool throughout the colon. No bowel obstruction. No mucosal thickening. PELVIS: Appendix: The appendix is seen on coronal image 40 and is unremarkable. Bladder: The bladder is underdistended. Reproductive: The uterus is unremarkable. ABDOMEN and PELVIS: Intraperitoneal space: Unremarkable. No free air. No significant fluid collection. Bones/joints: No spondylolysis or spondylolisthesis. No acute fracture. No dislocation. Soft tissues: Ischiorectal fat is clean. Vasculature: Flow is demonstrated within the celiac, SMA, the renal arteries, and NBA. No abdominal aortic aneurysm. Lymph nodes: No pelvic or inguinal lymphadenopathy. IMPRESSION: The dominant finding in the current study is distention of the gallbladder. There is suggestion of minimal gallbladder wall thickening and some stranding within the fat surrounding the fundus of the gallbladder. The possibility of early acute cholecystitis is raised. Ultrasound imaging of the right upper quadrant is advised to follow.
--- NOTE | 2020-11-15 01:50 | US ---
EXAM: US Abdomen Complete CLINICAL HISTORY: Right upper quadrant abdominal pain. TECHNIQUE: Real-time ultrasound of the abdomen with image documentation. COMPARISON: 11/15/2020. FINDINGS: Liver: Liver measures 21.5 cm and is enlarged. No intrahepatic bile duct dilation. Gallbladder: No evidence of gallbladder wall thickening. The gallbladder is mildly hydropic. Gallbladder wall measures 0.2 cm. No gallstones. Common bile duct: Common bile duct measures 0.3 cm. No stones. No dilation. Pancreas: The pancreas is obscured by bowel gas. Kidneys: Right kidney measures 4.4 x 4.1 x 4.4 cm without renal calculus or hydronephrosis. Spleen: Unremarkable. No splenomegaly. Aorta: Unremarkable. No aneurysm. Inferior vena cava: Unremarkable. IMPRESSION: 1. The gallbladder is mildly hydropic without gallbladder wall thickening or gallstones. 2. No gallbladder wall thickening. 3. Negative ultrasound Kendall's sign. 4. Common bile duct is normal in caliber. 5. No hydronephrosis the right kidney. 6. Hepatomegaly.
--- NOTE | 2020-11-15 01:50 | ED ---
Abdominal Pain HPI - General Chief Complaint: Abdominal Pain Stated Complaint: RUQ pain Time Seen by Provider: 11/15/20 00:11 Source: patient Mode of arrival: ambulatory Limitations: no limitations - History of Present Illness Initial Comments: Very pleasant, 29yo female with history of HTN and gestational diabetes presenting for cc of right sided abdominal pain since 9PM. Pt states that she developed sharp right upper abdominal pain at 9PM, roughly 3-4 hours after eating. patient states it has become intolerable. She denies any chest pain shortness of breath she denies any vomiting but admits to nausea denies diarrhea fevers denies experiencing this in the past she states it does wrap around towards the right side. She denies dysuria urgency frequency hematuria or history of kidney stones. Patient states that she does have history of ovarian cysts she denies any lower dental pain or pelvic pain denies a vaginal bleeding or . Patient staets she has felt more "burpy" than normal. Patient has no additional complaints. - Related Data Home Medications Medication Instructions Recorded Confirmed Labetalol [Trandate] 100 mg PO BID 10/19/19 11/12/20 Control Pill (Unk Name) 1 tab PO HS 11/10/20 11/12/20 Multivitamins, Thera [Multivitamin 1 tab PO DAILY 11/10/20 11/12/20 (formulary)] Previous Rx's Medication Instructions Recorded Cephalexin [Keflex] 500 mg PO Q6HR 7 Days #28 cap 11/15/20 Pantoprazole Sodium [Protonix] 40 mg PO DAILY 4 Days #4 tablet. 11/15/20 Allergies Allergy/AdvReac Type Severity Reaction Status Date / Time Environmental Allergy Mild See Comment Uncoded 11/15/20 00:00 Review of Systems ROS Statement: Those systems with pertinent positive or pertinent negative responses have been documented in the HPI. ROS Other: All systems not noted in ROS Statement are negative. Past Medical History Past Medical History: Hypertension, Thyroid Disorder Additional Past Medical History / Comment(s): Gestational Diabetes, chronic HTN, hypothyroidism. IBS History of Any Multi-Drug Resistant Organisms: None Reported Past Surgical History: Adenoidectomy Additional Past Surgical History / Comment(s): sinus surgery Past Anesthesia/Blood Transfusion Reactions: No Reported Reaction Past Psychological History: No Psychological Hx Reported Smoking Status: Never smoker Past Alcohol Use History: Rare Past Drug Use History: None Reported - Past Family History Mother Family Medical History: No Reported History General Exam - General Exam Comments Initial Comments: General: The patient is awake and alert, in no distress Eye: +3 mm pupils are equal, round and reactive to light, extra-ocular movements are intact. No nystagmus. There is normal conjunctiva bilaterally. No signs of icterus. Ears, nose, mouth and throat: There are moist mucous membranes and no oral lesions. Neck: The neck is supple, there is no tenderness or JVD. Cardiovascular: There is a regular rate and rhythm. No murmur, rub or gallop is appreciated. Respiratory: Lungs are clear to auscultation, respirations are non-labored, breath sounds are equal. No wheezes, stridor, rales, or rhonchi. Gastrointestinal: Soft, non-distended, right upper/mid abdominal tenderness to palpation, (-) murphys sign, abdomen without masses or organomegaly noted. There is no rebound or guarding present. No CVA tenderness. Musculoskeletal: Normal ROM, no tenderness. Strength 5/5. Sensation intact. Radial pulses equal bilaterally 2+. Neurological: A&O x 3. CN II-XII intact grossly, There are no obvious motor or sensory deficits. Coordination appears grossly intact. Speech is normal. Skin: Skin is warm and dry and no rashes or lesions are noted. Psychiatric: Cooperative, appropriate mood & affect, normal judgment. Limitations: no limitations Course Vital Signs 11/14/20 11/15/20 23:55 02:29 Temperature 99.2 F Pulse Rate 93 87 Respiratory 22 18 Rate Blood Pressure 162/118 122/100 O2 Sat by Pulse 97 98 Oximetry Medical Decision Making - Medical Decision Making 29yo female with RUQ pain reproducible to palpation on exam. mild leukocytosis at 11. Bilirubin and AST ALT all within normal limits. Patient's pain controlled after [address] borderline findings of the gallbladder, without ability to rule out early cholecystitis ultrasound recommended. Ultrasound reveals no acute findings. With normal laboratory studies no fevers, gallbladder ultrasound within normal limits and patient's pain controlled this time feel patient is stable for discharge with outpatient general surgery or GI follow-up for suspected biliary colic/cold water dysfunction. No other acute findings identified. HCG (-). Patient agreeable to this care plan and discharge. Pt BP discussed she states she is anxious being in ER will watch at home and return for any sustained elevated readings/new symptoms. Attending Dr. Ching is agreeable to this care plan. - Lab Data Result diagrams: 11/15/20 00:29 11/15/20 00:29 Lab Results 11/15/20 11/15/20 11/15/20 Range/Units 00:29 00:29 00:29 WBC 11.0 H (3.8-10.6) k/uL RBC 4.26 (3.80-5.40) m/uL Hgb 13.1 (11.4-16.0) gm/dL Hct 37.6 (34.0-46.0) % MCV 88.2 (80.0-100.0) fL MCH 30.8 (25.0-35.0) pg MCHC 34.9 (31.0-37.0) g/dL RDW 12.0 (11.5-15.5) % Plt Count 314 (150-450) k/uL MPV 7.3 Neutrophils % 53 % Lymphocytes % 39 % Monocytes % 4 % Eosinophils % 2 % Basophils % 0 % Neutrophils # 5.9 (1.3-7.7) k/uL Lymphocytes # 4.3 (1.0-4.8) k/uL Monocytes # 0.5 (0-1.0) k/uL Eosinophils # 0.2 (0-0.7) k/uL Basophils # 0.0 (0-0.2) k/uL Sodium (137-145) mmol/L Potassium (3.5-5.1) mmol/L Chloride (98-107) mmol/L Carbon Dioxide (22-30) mmol/L Anion Gap mmol/L BUN (7-17) mg/dL Creatinine (0.52-1.04) mg/dL Est GFR (CKD-EPI)AfAm (>60 ml/min/1.73 sqM) Est GFR (CKD-EPI)NonAf (>60 ml/min/1.73 sqM) Glucose (74-99) mg/dL Calcium (8.4-10.2) mg/dL Total Bilirubin (0.2-1.3) mg/dL AST (14-36) U/L ALT (4-34) U/L Alkaline Phosphatase (38-126) U/L Total Protein (6.3-8.2) g/dL Albumin (3.5-5.0) g/dL Amylase (30-110) U/L Lipase (23-300) U/L Urine Color Yellow Urine Appearance Cloudy H (Clear) Urine pH 5.5 (5.0-8.0) Ur Specific [place] 1.028 (1.001-1.035) Urine Protein Trace H (Negative) Urine Glucose (UA) Negative (Negative) Urine Ketones Negative (Negative) Urine Blood Moderate H (Negative) Urine Nitrite Negative (Negative) Urine Bilirubin Negative (Negative) Urine Urobilinogen <2.0 (<2.0) mg/dL Ur Leukocyte Esterase Moderate H (Negative) Urine RBC 5 (0-5) /hpf Urine WBC 49 H (0-5) /hpf Ur Squamous Epith Cells 12 H (0-4) /hpf Amorphous Sediment Few H (None) /hpf Urine Bacteria Rare H (None) /hpf Urine Mucus Rare H (None) /hpf Urine HCG, Qual Not Detected (Not Detectd) 11/15/20 Range/Units 00:29 WBC (3.8-10.6) k/uL RBC (3.80-5.40) m/uL Hgb (11.4-16.0) gm/dL Hct (34.0-46.0) % MCV (80.0-100.0) fL MCH (25.0-35.0) pg MCHC (31.0-37.0) g/dL RDW (11.5-15.5) % Plt Count (150-450) k/uL MPV Neutrophils % % Lymphocytes % % Monocytes % % Eosinophils % % Basophils % % Neutrophils # (1.3-7.7) k/uL Lymphocytes # (1.0-4.8) k/uL Monocytes # (0-1.0) k/uL Eosinophils # (0-0.7) k/uL Basophils # (0-0.2) k/uL Sodium 137 (137-145) mmol/L Potassium 4.3 (3.5-5.1) mmol/L Chloride 107 (98-107) mmol/L Carbon Dioxide 16 L (22-30) mmol/L Anion Gap 14 mmol/L BUN 14 (7-17) mg/dL Creatinine 0.57 (0.52-1.04) mg/dL Est GFR (CKD-EPI)AfAm >90 (>60 ml/min/1.73 sqM) Est GFR (CKD-EPI)NonAf >90 (>60 ml/min/1.73 sqM) Glucose 138 H (74-99) mg/dL Calcium 10.2 (8.4-10.2) mg/dL Total Bilirubin 0.3 (0.2-1.3) mg/dL AST 21 (14-36) U/L ALT 17 (4-34) U/L Alkaline Phosphatase 57 (38-126) U/L Total Protein 8.0 (6.3-8.2) g/dL Albumin 4.5 (3.5-5.0) g/dL Amylase 46 (30-110) U/L Lipase 160 (23-300) U/L Urine Color Urine Appearance (Clear) Urine pH (5.0-8.0) Ur Specific [place] (1.001-1.035) Urine Protein (Negative) Urine Glucose (UA) (Negative) Urine Ketones (Negative) Urine Blood (Negative) Urine Nitrite (Negative) Urine Bilirubin (Negative) Urine Urobilinogen (<2.0) mg/dL Ur Leukocyte Esterase (Negative) Urine RBC (0-5) /hpf Urine WBC (0-5) /hpf Ur Squamous Epith Cells (0-4) /hpf Amorphous Sediment (None) /hpf Urine Bacteria (None) /hpf Urine Mucus (None) /hpf Urine HCG, Qual (Not Detectd) Disposition Clinical Impression: RUQ pain Disposition: HOME SELF-CARE Condition: Good Instructions (If sedation given, give patient instructions): Biliary Colic (ED), Low Fat Diet (ED), Abdominal Pain (ED) Additional Instructions: Please use medication as discussed. Please follow-up with family doctor in the next 2 days, highly recommend general surgery consultation. Please return to emergency room if the symptoms increase or worsen or for any other concerns. Prescriptions: Pantoprazole Sodium [Protonix] 40 mg PO DAILY 4 Days #4 tablet.dr Is patient prescribed a controlled substance at d/c from ED?: No Referrals: Adrian Koroma MD [Primary Care Provider] - 1-2 days Norberto Reyes MD [Medical Doctor] - 1-2 days Time of Disposition: 02:18
--- NOTE | 2020-11-15 01:56 | US ---
EXAM: US Pelvis Transabdominal and Transvaginal, Complete CLINICAL HISTORY: Pain. TECHNIQUE: Real-time complete transabdominal and transvaginal pelvic ultrasound with image documentation. Transvaginal imaging was used for better evaluation of the endometrium and adnexa. COMPARISON: No relevant prior studies available. FINDINGS: Uterus/cervix: 9.2 x 5.2 x 4.6 cm.. Normal endometrial stripe thickness at 4.5 mm. No myometrial mass. Right ovary: 3.6 x 2.2 x 1.7 cm. 14 x 11 x 19 mm cyst. No mass. Normal blood flow. Left ovary: 1.8 x 1.6 x 1.3 cm. No mass. Normal blood flow. Free fluid: No free fluid. IMPRESSION: Small right ovarian cyst. Otherwise unremarkable exam.
[2020-11-15] MEDS ORDERED: ACET/COD 300 MG/30 MG STARTER PACK 6 TAB BTL PO STA (02:15)
[2020-11-15] MEDS ORDERED: PANTOPRAZOLE 40 MG/10 ML VIAL IVP STA (02:15)
[2020-11-15 02:30] VITALS: BP 122/100; PULSE 87; RESP 18
== END 2020-11-15 02:30 | disposition home or self-care (01) ==
LOC: EC 23:42
DX: R10.11 Right upper quadrant pain (principal); R11.0 Nausea; I10 Essential (primary) hypertension; Z79.899 Other long term (current) drug therapy; Z90.89 Acquired absence of other organs; Z91.048 Other nonmedicinal substance allergy status
CPT/HCPCS: 36415; 80053; 82150; 83690; 85025; 81001; 81025; 87086; 93975; 76705; 76830; 74177; 99284; 96374; 96375 ×2; J2405; C9113; J1170; Q9967

== ENCOUNTER → 2020-11-24 | Outpatient (CLI) | payer MEDICAID ==
--- NOTE | 2020-11-24 09:45 | NM ---
EXAMINATION TYPE: NM hepatobiliary w CCK DATE OF EXAM: 11/24/2020 COMPARISON: Correlation ultrasound 11/15/2020 HISTORY: 29-year-old female R10.11, right upper quadrant pain TECHNIQUE: After the intravenous administration of 4.1 mCi Tc 99m Mebrofenin hepatobiliary scintigrap hy is performed. Immediate images post injection. FINDINGS: There is satisfactory initial accumulation of tracer by the liver. The gallbladder is visualized wit hin 6 minutes. The small bowel activity is noted within 46 minutes. At one hour CCK was administere d, patient was injected with 1.9 mcg of Kinevac, and gallbladder ejection fraction is calculated at 4 9 %, in the normal range. Therefore there is no scintigraphic evidence of cystic or common bile duct obstruction to suggest acute cholecystitis or gallbladder dyskinesia. IMPRESSION: No scintigraphic evidence for acute/chronic cholecystitis or biliary dyskinesia.
== END | disposition home or self-care (01) ==
LOC: RADNMMAIN 07:02
PROVIDERS: ATTEND Surgery
DX: R10.11 Right upper quadrant pain (principal)
CPT/HCPCS: 78227; A9537; J2805

== ENCOUNTER 2021-02-11 05:51 | Observation (INO) | payer MEDICAID ==
[2021-02-11] MEDS ORDERED: ONDANSETRON 4 MG/2 ML VIAL IVP STA (06:04)
[2021-02-11] MEDS ORDERED: HYDROmorphone 0.5 MG/0.5 ML SYRINGE IVP STA (06:04)
[2021-02-11] MEDS ORDERED: SODIUM CHLORIDE 0.9% 1,000 ML IV STA (06:04)
--- NOTE | 2021-02-11 06:17 | ED ---
Abdominal Pain HPI - General Chief Complaint: Abdominal Pain Stated Complaint: abd pain Time Seen by Provider: 02/11/21 06:00 Source: patient Mode of arrival: ambulatory Limitations: no limitations - History of Present Illness Initial Comments: 30yo female presenting for cc of RUQ abdominal pain. pt states that since last night she has had RUQ pain with nausea, vomiting. Denies diarrhea. pt states she has experienced this in the past and evaluated outpatient by Dr Reyes who stated that she would eventually need gallbladder out if this pain was persistent. Patient denies blood on stools/vomit, chest pain, dyspnea, pain with deep inspiration, denies lower abdominal pain/> Pt states sharp in nature of the RUQ. Patient denies additional complaints. Upon arrival she appears uncomfortable and BP is elevated, suspected to be situation (pain/ER visit and will monitor) - Related Data Home Medications Medication Instructions Recorded Confirmed Labetalol [Trandate] 100 mg PO BID 10/19/19 11/12/20 Control Pill (Unk Name) 1 tab PO HS 11/10/20 11/12/20 Multivitamins, Thera [Multivitamin 1 tab PO DAILY 11/10/20 11/12/20 (formulary)] Previous Rx's Medication Instructions Recorded Cephalexin [Keflex] 500 mg PO Q6HR 7 Days #28 cap 11/15/20 Pantoprazole Sodium [Protonix] 40 mg PO DAILY 4 Days #4 tablet. 11/15/20 Allergies Allergy/AdvReac Type Severity Reaction Status Date / Time Environmental Allergy Mild See Comment Uncoded 02/11/21 05:58 Review of Systems ROS Statement: Those systems with pertinent positive or pertinent negative responses have been documented in the HPI. ROS Other: All systems not noted in ROS Statement are negative. Past Medical History Past Medical History: Hypertension, Thyroid Disorder Additional Past Medical History / Comment(s): Gestational Diabetes, chronic HTN, hypothyroidism. IBS History of Any Multi-Drug Resistant Organisms: None Reported Past Surgical History: Adenoidectomy Additional Past Surgical History / Comment(s): sinus surgery Past Anesthesia/Blood Transfusion Reactions: No Reported Reaction Past Psychological History: No Psychological Hx Reported Smoking Status: Never smoker Past Alcohol Use History: Rare Past Drug Use History: None Reported - Past Family History Mother Family Medical History: No Reported History General Exam Limitations: no limitations Course Vital Signs 02/11/21 05:54 Temperature 97.9 F Pulse Rate 94 Respiratory 18 Rate Blood Pressure 162/103 O2 Sat by Pulse 98 Oximetry Medical Decision Making - Medical Decision Making changes to US now thickened and hydrops--labs reveal lactic acidosis otherwise stable. pt will be admitted for pain control, surgicla consultation. Dr Reyes consulted who is patient established surgeon-recommended abx. pt admitted appearing well. - Lab Data Result diagrams: 02/11/21 06:26 02/11/21 06:26 Lab Results 02/11/21 02/11/21 02/11/21 Range/Units 06:26 06:26 06:26 WBC 9.5 (3.8-10.6) k/uL RBC 4.36 (3.80-5.40) m/uL Hgb 13.7 (11.4-16.0) gm/dL Hct 38.5 (34.0-46.0) % MCV 88.3 (80.0-100.0) fL MCH 31.4 (25.0-35.0) pg MCHC 35.6 (31.0-37.0) g/dL RDW 12.2 (11.5-15.5) % Plt Count 313 (150-450) k/uL MPV 7.2 Neutrophils % 60 % Lymphocytes % 32 % Monocytes % 4 % Eosinophils % 2 % Basophils % 1 % Neutrophils # 5.7 (1.3-7.7) k/uL Lymphocytes # 3.0 (1.0-4.8) k/uL Monocytes # 0.4 (0-1.0) k/uL Eosinophils # 0.2 (0-0.7) k/uL Basophils # 0.1 (0-0.2) k/uL Sodium 139 (137-145) mmol/L Potassium 4.2 (3.5-5.1) mmol/L Chloride 107 (98-107) mmol/L Carbon Dioxide 20 L (22-30) mmol/L Anion Gap 12 mmol/L BUN 16 (7-17) mg/dL Creatinine 0.63 (0.52-1.04) mg/dL Est GFR (CKD-EPI)AfAm >90 (>60 ml/min/1.73 sqM) Est GFR (CKD-EPI)NonAf >90 (>60 ml/min/1.73 sqM) Glucose 118 H (74-99) mg/dL Plasma Lactic Acid Parth 2.6 H* (0.7-2.0) mmol/L Calcium 9.7 (8.4-10.2) mg/dL Total Bilirubin 0.2 (0.2-1.3) mg/dL AST 19 (14-36) U/L ALT 13 (4-34) U/L Alkaline Phosphatase 54 (38-126) U/L Total Protein 7.8 (6.3-8.2) g/dL Albumin 4.4 (3.5-5.0) g/dL Amylase 50 (30-110) U/L Lipase 173 (23-300) U/L Disposition Clinical Impression: RUQ pain, Thickening of wall of gallbladder, Gallbladder hydrops Disposition: ADMITTED IP TO THIS [facility] Condition: Stable Is patient prescribed a controlled substance at d/c from ED?: No Referrals: Adrian Koroma MD [Primary Care Provider] - 1-2 days Time of Disposition: 08:26 Decision to Admit Reason: Admit from EC Decision Date: 02/11/21 Decision Time: 08:
[2021-02-11 06:34] LABS: Basophils # (A) 0.1 k/uL (0-0.2); Basophils % (A) 1 %; Eosinophils # (A) 0.2 k/uL (0-0.7); Eosinophils % (A) 2 %; HCT 38.5 % (34.0-46.0); HGB 13.7 gm/dL (11.4-16.0); Lymphocytes % (A) 32 %; MCH 31.4 pg (25.0-35.0); MCHC 35.6 g/dL (31.0-37.0); MCV 88.3 fL (80.0-100.0); Mean Platelet Volume 7.2; Monocytes # (A) 0.4 k/uL (0-1.0); Monocytes % (A) 4 %; Neutrophils # (A) 5.7 k/uL (1.3-7.7); Neutrophils % (A) 60 %; Platelet Count 313 k/uL (150-450); RBC 4.36 m/uL (3.80-5.40); RDW 12.2 % (11.5-15.5); WBC 9.5 k/uL (3.8-10.6)
[2021-02-11 07:21] LABS: ALT 13 U/L (4-34); AST 19 U/L (14-36); African American GFR (CKD) >90 (>60 ml/min/1.73 sqM); Albumin 4.4 g/dL (3.5-5.0); Alkaline Phosphatase 54 U/L (38-126); Amylase 50 U/L (30-110); Anion Gap 12 mmol/L; Blood Urea Nitrogen 16 mg/dL (7-17); Calcium 9.7 mg/dL (8.4-10.2); Carbon Dioxide 20 mmol/L (22-30); Chloride 107 mmol/L (98-107); Glucose 118 mg/dL (74-99); Lipase 173 U/L (23-300); Non-African American GFR(CKD) >90 (>60 ml/min/1.73 sqM); Potassium 4.2 mmol/L (3.5-5.1); Sodium 139 mmol/L (137-145); Total Bilirubin 0.2 mg/dL (0.2-1.3); Total Protein 7.8 g/dL (6.3-8.2)
--- NOTE | 2021-02-11 07:32 | US ---
EXAMINATION TYPE: US gallbladder DATE OF EXAM: 02/11/2021 COMPARISON: 11/15/2020 CLINICAL HISTORY: RUQ Pain. patient is extremely nauseous and belching throughout exam, can barley to uch her abd without causing pain and vomiting EXAM MEASUREMENTS: Liver Length: 20.9 cm Gallbladder Wall: 0.3 cm CBD: 0.4 cm Right Kidney: 13.6 x 4.8 x 4.2 cm patient very tender to touch and could barley apply pressure without her feeling sick Pancreas: wnl Liver: enlarged Gallbladder: hydropic at 14.1cm, no obvious stones seen Evidence for sonographic Kendall's sign: YES CBD: wnl Right Kidney: wnl IMPRESSION: 1. gallbladder hydrops with mild gallbladder wall thickening. No definite cholelithiasis or perichole cystic fluid. CBD is within normal dates. 2. Hepatomegaly
[2021-02-11] MEDS ORDERED: FAMOTIDINE 20 MG/2 ML VIAL IV STA (07:50)
[2021-02-11] MEDS ORDERED: HYDROmorphone 0.2 MG/1 ML SYRINGE IVP STA (08:18)
[2021-02-11] MEDS ORDERED: NALOXONE 0.4 MG/ML 1 ML VIAL IV PRN (08:26)
[2021-02-11 09:30] LABS: Appearance,Urine Cloudy (Clear); Bacteria,Urine Rare /hpf; Bilirubin,Urine Negative (Negative); Blood,Urine Small (Negative); Color,Urine Light Yellow; Glucose,Urine (UA) Negative (Negative); Ketones,Urine Negative (Negative); Leukocyte Esterase,Urine Small (Negative); Nitrite,Urine Negative (Negative); PH, Urine 6.5 (5.0-8.0); Protein,Urine Negative (Negative); RBC,Urine 8 /hpf (0-5); Squamous Epithelial Cell,Urine 19 /hpf (0-4); Urobilinogen,Urine <2.0 mg/dL (<2.0); WBC,Urine 4 /hpf (0-5)
[2021-02-11] MEDS ORDERED: IV FLUID CONTINUATION 1,000 ML IV ONE (10:16)
[2021-02-11] MEDS ORDERED: ONDANSETRON 4 MG/2 ML VIAL ONE (10:25)
[2021-02-11] MEDS ORDERED: HEPARIN SODIUM,PORCINE/PF 5,000 UNIT/0.5 ML SYRINGE SQ ONE (10:26)
[2021-02-11] MEDS ORDERED: SCOPOLAMINE 1.5MG/72HR PATCH TRANSDERM ONE (10:28)
[2021-02-11] MEDS ORDERED: DEXAMETHASONE SOD PHOSPHATE 4 MG/ML 1 ML VIAL IVP ONE (10:28)
[2021-02-11] MEDS ORDERED: ACETAMINOPHEN TAB 500 MG TAB PO ONE (10:32)
[2021-02-11] MEDS ORDERED: HEPARIN SODIUM,PORCINE 5,000 UNIT/ML 1 ML VIAL SQ ONE (10:33)
[2021-02-11] MEDS ORDERED: ACETAMINOPHEN TAB 500 MG TAB ONE (10:36)
--- NOTE | 2021-02-11 10:38 | P.GSHP ---
History of Present Illness H&P Date: 02/11/21 Chief Complaint: right upper quadrant abdominal pain 30-year-old female known to our service. Patient was seen in November with similar complaints of right upper quadrant abdominal pain. She has had multiple attacks since that time. Pain is typically right upper quadrant with radiation to the back. She has had associated symptoms of nausea and vomiting. No lower abdominal pain. Normal bowel habits. No change in the color of her skin urine or stool. Previous workup included CAT scan abdomen and pelvis, ultrasound, HIDA scan. These studies showed a distended gallbladder with mild inflammation. No stones were seen. Ejection fraction was normal. This admission the patient had an ultrasound again which showed hydrops and a thickened gallbladder wall without stones. Patient states she was very tender in that area when she had her ultrasound performed. Liver enzymes are normal. White blood cell count is normal. Lactic acid is elevated. - Review of Systems Comment: The patient denies any acute changes in vision or hearing, no dysphagia or odynophagia, no chest pain or shortness of breath, no dysuria or hematuria, no headache, no runny nose, no rectal bleeding or melena, no unexplained weight loss Past Medical History Past Medical History: Hypertension, Thyroid Disorder Additional Past Medical History / Comment(s): Gestational Diabetes, chronic HTN, hypothyroidism. IBS History of Any Multi-Drug Resistant Organisms: None Reported Past Surgical History: Adenoidectomy Additional Past Surgical History / Comment(s): sinus surgery Past Anesthesia/Blood Transfusion Reactions: No Reported Reaction Smoking Status: Never smoker - Past Family History Mother Family Medical History: No Reported History Medications and Allergies Home Medications Medication Instructions Recorded Confirmed Type Labetalol [Trandate] 100 mg PO BID 10/19/19 02/11/21 History Acetaminophen-Codeine 300-30mg 1 tab PO Q6H PRN 02/11/21 02/11/21 History [Tylenol w/codeine #3] Norethindrone-E.estradiol-Iron 1 tab PO HS 02/11/21 02/11/21 History [Aurovela Fe 1.5 mg-30 Mcg Tab] Sertraline HCl [Zoloft] 50 mg PO HS 02/11/21 02/11/21 History Allergies Allergy/AdvReac Type Severity Reaction Status Date / Time Environmental Allergy Mild CONGESTION Uncoded 02/11/21 10:26 Surgical - Exam Vital Signs Temp Pulse Resp BP Pulse Ox 97.9 F 94 18 162/103 98 02/11/21 05:54 02/11/21 05:54 02/11/21 05:54 02/11/21 05:54 02/11/21 05:54 Physical exam: General: Well-developed, well-nourished HEENT: Normocephalic, sclerae nonicteric Abdomen: Right upper quadrant tenderness present, nondistended Extremities: No edema Neuro: Alert and oriented Results - Labs 02/11/21 06:26 02/11/21 06:26 Abnormal Lab Results - Last 24 Hours (Table) 02/11/21 02/11/21 02/11/21 Range/Units 06:26 06:26 06:26 Carbon Dioxide 20 L (22-30) mmol/L Glucose 118 H (74-99) mg/dL Plasma Lactic Acid Parth 2.6 H* (0.7-2.0) mmol/L Urine Appearance Cloudy H (Clear) Urine Blood Small H (Negative) Ur Leukocyte Esterase Small H (Negative) Urine RBC 8 H (0-5) /hpf Ur Squamous Epith Cells 19 H (0-4) /hpf Urine Bacteria Rare H (None) /hpf Diabetes panel 02/11/21 Range/Units 06:26 Sodium 139 (137-145) mmol/L Potassium 4.2 (3.5-5.1) mmol/L Chloride 107 (98-107) mmol/L Carbon Dioxide 20 L (22-30) mmol/L BUN 16 (7-17) mg/dL Creatinine 0.63 (0.52-1.04) mg/dL Glucose 118 H (74-99) mg/dL Calcium 9.7 (8.4-10.2) mg/dL AST 19 (14-36) U/L ALT 13 (4-34) U/L Alkaline Phosphatase 54 (38-126) U/L Total Protein 7.8 (6.3-8.2) g/dL Albumin 4.4 (3.5-5.0) g/dL Calcium panel 02/11/21 Range/Units 06:26 Calcium 9.7 (8.4-10.2) mg/dL Albumin 4.4 (3.5-5.0) g/dL Pituitary panel 02/11/21 Range/Units 06:26 Sodium 139 (137-145) mmol/L Potassium 4.2 (3.5-5.1) mmol/L Chloride 107 (98-107) mmol/L Carbon Dioxide 20 L (22-30) mmol/L BUN 16 (7-17) mg/dL Creatinine 0.63 (0.52-1.04) mg/dL Glucose 118 H (74-99) mg/dL Calcium 9.7 (8.4-10.2) mg/dL Adrenal panel 02/11/21 Range/Units 06:26 Sodium 139 (137-145) mmol/L Potassium 4.2 (3.5-5.1) mmol/L Chloride 107 (98-107) mmol/L Carbon Dioxide 20 L (22-30) mmol/L BUN 16 (7-17) mg/dL Creatinine 0.63 (0.52-1.04) mg/dL Glucose 118 H (74-99) mg/dL Calcium 9.7 (8.4-10.2) mg/dL Total Bilirubin 0.2 (0.2-1.3) mg/dL AST 19 (14-36) U/L ALT 13 (4-34) U/L Alkaline Phosphatase 54 (38-126) U/L Total Protein 7.8 (6.3-8.2) g/dL Albumin 4.4 (3.5-5.0) g/dL Assessment and Plan (1) Acalculous cholecystitis Narrative/Plan: 30-year-old female with studies suggesting acute acalculous cholecystitis. Options discussed with patient. We decided to proceed with laparoscopic, possible open cholecystectomy at this time. Risks of bleeding, infection, bile leak, bile duct injury, retained common bile duct stone, trocar injury, conversion to an open procedure, hernia, anesthesia related complications were reviewed. The patient understands and wishes to proceed. Current Visit: Yes Status: Acute Code(s): K81.9 - CHOLECYSTITIS, UNSPECIFIED SNOMED Code(s): 16487088
[2021-02-11] MEDS ORDERED: MIDAZOLAM 2 MG/2 ML VIAL ONE (11:26)
[2021-02-11] MEDS ORDERED: ROCURONIUM 10 MG/ML (5 ML VIAL) IV ONE (11:26)
[2021-02-11] MEDS ORDERED: SUCCINYLCHOLINE CHLORIDE 100 MG/5 ML SYR IV ONE (11:26)
[2021-02-11] MEDS ORDERED: LIDOCAINE 1% INJ 10MG/ML (20 ML MDV) ONE (11:26)
[2021-02-11] MEDS ORDERED: KETOROLAC 15 MG/ML 1 ML VIAL ONE (11:26)
[2021-02-11] MEDS ORDERED: fentaNYL (PF) 50 MCG/ML 2 ML AMP ONE (11:26)
[2021-02-11] MEDS ORDERED: PROPOFOL 10 MG/ML 20 ML VIAL IV ONE (11:26)
[2021-02-11] MEDS ORDERED: GLYCOPYRROLATE 0.2 MG/ML 2 ML VIAL ONE (11:26)
[2021-02-11] MEDS ORDERED: NEOSTIGMINE 1 MG/ML 10 ML VIAL ONE (11:26)
[2021-02-11] MEDS ORDERED: LIDOCAINE 1% INJ 10MG/ML (20 ML MDV) SQ ONE (11:27)
[2021-02-11] MEDS ORDERED: ONDANSETRON 4 MG/2 ML VIAL IVP PRN (12:32)
--- NOTE | 2021-02-11 12:37 | P.OP ---
Date of Procedure: 02/11/21 Procedure(s) Performed: PREOPERATIVE DIAGNOSIS: Acute acalculous cholecystitis POSTOPERATIVE DIAGNOSIS: Acute calculus cholecystitis PROCEDURE: Laparoscopic cholecystectomy SURGEON: Amy EBL: Minimal see anesthesia record ANESTHESIA: Gen. COMPLICATIONS: None OPERATIVE PROCEDURE: The patient was brought and placed on the operating room table in the supine position. The patient was placed under general anesthesia at that time. The abdomen was prepped and draped in the usual sterile fashion. A small vertical infraumbilical incision was made. The fascia was grasped with the Rosa forceps. The fascia was retracted anteriorly. The Veress needle was advanced into the peritoneal cavity. The saline drop test was normal. Insufflation took place up to 15 mmHg. A 5 mm optical trocar was advanced and the peritoneal cavity. 2 additional 5 mm trochars were placed in the right upper quadrant under direct visualization. A 12 mm trocar was advanced into the epigastric incision site. The gallbladder was distended with a thickened gallbladder wall. The gallbladder was retracted superiorly and laterally. The peritoneum overlying the infundibulum was bluntly dissected. The patient's cystic duct was visualized. The junction between the cystic duct common and hepatic duct was identified. The cystic duct was then divided after placement of 3 12 mm clips on the patient's side and one on the specimen side. The cystic artery was identified and clipped as well. A small vessel was seen along the gallbladder fossa and clipped as well. The gallbladder was then removed from the liver bed using electrocautery. The gallbladder was then removed from the epigastric trocar site with an Endo Catch bag. The gallbladder fossa was irrigated with saline. There was no evidence of any bleeding or biliary drainage seen. The fascia at the 12 millimeter site was closed using a Clive- Agustín 0 Vicryl stitch. The trochars were then removed. The skin at all 4 sites was closed using a 4-0 Monocryl stitch. Skin glue was utilized on the incision sites. At the end of this procedure the sponge and needle counts were correct. I opened the specimen on the back table. A stone was palpated to be impacted in the cystic duct. The stone measured about 8 mm in size and was sent with the specimen. Pictures were provided to family. DISPOSITION: Stable to the recovery room
[2021-02-11] MEDS: HYDROmorphone 1 MG/ML 1 ML SYRINGE IVP ONE ×3 (12:44→13:33)
[2021-02-11] MEDS: diphenhydrAMINE 50 MG/ML 1 ML VIAL IVP ONE ×2 (12:45→13:58)
[2021-02-11] MEDS ORDERED: SODIUM CHLORIDE 0.9% 1,000 ML IV ONE ×2 (13:02)
[2021-02-11] MEDS ORDERED: ACETAMINOPHEN IV (For NPO) 1,000 MG/100 ML VIAL IVPB ONE (13:49)
[2021-02-11] MEDS: DOCUSATE 100 MG CAP PO SCH ×2 (14:37→20:42)
[2021-02-11] MEDS: PANTOPRAZOLE 40 MG/10 ML VIAL IV SCH (14:38)
[2021-02-11] MEDS: PIPERACILLIN-TAZOBACTAM 3.375 GM in SODIUM CHLORIDE 0.9% 100 ML IVPB SCH ×2 (14:47→23:48)
[2021-02-11] MEDS: BENZOCAINE/MENTHOL LOZENG 1 EACH LOZENGE MUCOUS MEM PRN ×3 (14:57→23:51)
[2021-02-11] MEDS: HYDROmorphone 0.5 MG/0.5 ML SYRINGE IVP PRN ×2 (15:14→18:06)
[2021-02-11] MEDS: HYDROcodone/APAP 5-325MG 1 EACH TAB PO PRN ×2 (17:19→19:42)
[2021-02-11] MEDS: HEPARIN SODIUM,PORCINE/PF 5,000 UNIT/0.5 ML SYRINGE SQ SCH (17:23)
[2021-02-11] MEDS ORDERED: HYDROmorphone 0.5 MG/0.5 ML SYRINGE IVP ONE (19:40)
[2021-02-11] MEDS ORDERED: KETOROLAC 15 MG/ML 1 ML VIAL IVP STA (19:45)
[2021-02-11] MEDS: LABETALOL 100 MG TAB PO SCH (20:42)
[2021-02-11] MEDS ORDERED: SERTRALINE 50 MG TAB PO SCH (21:00)
[2021-02-11] MEDS ORDERED: diphenhydrAMINE 50 MG/ML 1 ML VIAL IVP STA (22:43)
[2021-02-12] MEDS: HEPARIN SODIUM,PORCINE/PF 5,000 UNIT/0.5 ML SYRINGE SQ SCH ×2 (00:58→08:18)
[2021-02-12] MEDS: KETOROLAC 15 MG/ML 1 ML VIAL IVP SCH ×3 (00:59→11:58)
[2021-02-12] MEDS: HYDROcodone/APAP 5-325MG 1 EACH TAB PO PRN ×2 (02:26→08:37)
[2021-02-12] MEDS: BENZOCAINE/MENTHOL LOZENG 1 EACH LOZENGE MUCOUS MEM PRN (06:42)
[2021-02-12] MEDS: PIPERACILLIN-TAZOBACTAM 3.375 GM in SODIUM CHLORIDE 0.9% 100 ML IVPB SCH (08:19)
[2021-02-12] MEDS: LABETALOL 100 MG TAB PO SCH (08:19)
[2021-02-12] MEDS: DOCUSATE 100 MG CAP PO SCH (08:19)
[2021-02-12] MEDS: PANTOPRAZOLE 40 MG/10 ML VIAL IV SCH (08:23)
[2021-02-12 09:02] VITALS: BP 135/84; PULSE 73; RESP 18; TEMP 98.6
--- NOTE | 2021-02-12 12:01 | P.DS ---
<LonZee vail - Last Filed: 02/12/21 11:57> Providers Expected date of discharge: 02/12/21 Hospital Course: Discharge diagnosis 1. Acute acalculous cholecystitis status post laparoscopic cholecystectomy Hospital course This is a 30-year-old female who was seen in November with similar complaints of right upper quadrant abdominal pain. She has had multiple attacks since that time. Pain is typically right upper quadrant with radiation to the back. She has had associated symptoms of nausea and vomiting. No lower abdominal pain. Normal bowel habits. No change in the color of her skin urine or stool. Previous workup included CAT scan abdomen and pelvis, ultrasound, HIDA scan. Th cesario studies showed a distended gallbladder with mild inflammation. No stones were seen. Ejection fraction was normal. This admission the patient had an ultrasound again which showed hydrops and a thickened gallbladder wall without stones. Patient states she was very tender in that area when she had her ultrasound performed. Patient is status post laparoscopic cholecystectomy. She is tolerating diet. She reports that her pain is controlled. She is afebrile. She has been up and ambulating. She is stable for discharge. 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 Signing provider agrees with the documented findings, assessment, and plan of care. Patient Condition at Discharge: Stable Plan - Discharge Summary Discharge Rx Participant: Yes New Discharge Prescriptions: New Ibuprofen [Motrin] 600 mg PO Q8HR PRN #30 tab PRN Reason: Pain HYDROcodone/APAP 5-325MG [[place] 5-325] 1 tab PO Q6HR PRN 3 Days #12 tab PRN Reason: Pain Continue Labetalol [Trandate] 100 mg PO BID Sertraline HCl [Zoloft] 50 mg PO HS Norethindrone-E.estradiol-Iron [Aurovela Fe 1.5 mg-30 Mcg Tab] 1 tab PO HS Discontinued Acetaminophen-Codeine 300-30mg [Tylenol w/codeine #3] 1 tab PO Q6H PRN PRN Reason: Pain Discharge Medication List Labetalol [Trandate] 100 mg PO BID 10/19/19 [History] Norethindrone-E.estradiol-Iron [Aurovela Fe 1.5 mg-30 Mcg Tab] 1 tab PO HS 02/11/21 [History] Sertraline HCl [Zoloft] 50 mg PO HS 02/11/21 [History] HYDROcodone/APAP 5-325MG [[place] 5-325] 1 tab PO Q6HR PRN 3 Days #12 tab 02/12/21 [Rx] Ibuprofen [Motrin] 600 mg PO Q8HR PRN #30 tab 02/12/21 [Rx] Follow up Appointment(s)/Referral(s): Norberto Reyes MD [Medical Doctor] - 02/18/21 1:20 pm Adrian Koroma MD [Primary Care Provider] - 1-2 days Patient Instructions/Handouts: *Surgery [facility] - Laparoscopic Cholecystectomy Discharge Instructions, *Surgery [facility] - (Anesthesia) Discharge Instructions Outpatient Surgery Activity/Diet/Wound Care/Special Instructions: No driving while taking [place] No lifting over 10 pounds You may shower. No soaking or tub baths for 2 weeks Very light activity until you are reevaluated at your follow up appointment with your surgeon Last received Tordol ( same family as motrin ) at 1200 Last received Northwood at 0840 Discharge Disposition: HOME SELF-CARE <Norberto Reyes - Last Filed: 02/12/21 12:33> Providers Date of admission: 02/11/21 08:26 Attending physician: Norberto Reyes Primary care physician: William Koroma - Discharge Diagnosis(es) (1) Acalculous cholecystitis Current Visit: Yes Status: Acute Hospital Course: As above. Patient feeling better today. She would like to go home. She is tolerating her diet. January discharge. Follow-up one week.
[2021-02-13] MEDS ORDERED: PANTOPRAZOLE 40 MG TABLET PO SCH (07:30)
== END 2021-02-12 13:06 | disposition home or self-care (01) ==
LOC: EC 05:51 → 6PED 08:26
PROVIDERS: ADMIT Surgery; ATTEND Surgery
DX: K80.00 Calculus of gallbladder with acute cholecystitis without obstruction (principal); K82.1 Hydrops of gallbladder; I10 Essential (primary) hypertension; E87.2 Acidosis; E03.9 Hypothyroidism, unspecified; K58.9 Irritable bowel syndrome, unspecified; Z20.822 Contact with and (suspected) exposure to COVID-19; Z79.3 Long term (current) use of hormonal contraceptives; Z79.899 Other long term (current) drug therapy; Z86.32 Personal history of gestational diabetes; Z91.09 Other allergy status, other than to drugs and biological substances
CPT/HCPCS: 47562; 96361; 96374; 96375; 99285; 36415; 81025 ×2; 88304; 80053; 82150; 83605; 83690; 85025; 81001; 87635; 76705; G0378 ×2; J2543 ×2; J2250; J1200; J1644 ×3; J1100; J2710; J2405; J0696; J2001; J3010; J1170 ×3; J0131; J1885 ×2; J0330; J2704; C9113 ×2

== ENCOUNTER → 2021-12-22 | Outpatient (CLI) | payer MEDICAID ==
[2021-12-22 10:29] LABS: HCT 39.2 % (37.2-46.3); HGB 12.9 g/dL (12.0-15.0); MCH 29.5 pg (27.0-32.0); MCHC 32.9 g/dL (32.0-37.0); MCV 89.7 fL (80.0-97.0); Mean Platelet Volume 9.8 fL (9.5-12.2); NRBC Per 100 WBC 0 /100 WBCS (0.0-0.0); Platelet Count 336 X 10*3/uL (140-440); RBC 4.37 X 10*6/uL (4.10-5.20); RDW 12.6 % (11.5-14.5); WBC 11.22 X 10*3/uL (4.50-10.00)
[2021-12-22 10:46] LABS: ALT 50 U/L (8-44); AST 28 U/L (13-35); African American GFR (CKD) 135.7 (60.0-200.0); Albumin 4.7 g/dL (3.8-4.9); Albumin/Globulin Ratio 1.81 (1.60-3.17); Alkaline Phosphatase 57 U/L (41-126); BUN/Creat Ratio 14.86 Ratio (12.00-20.00); Blood Urea Nitrogen 10.4 mg/dL (9.0-27.0); Calcium 9.8 mg/dL (8.7-10.3); Carbon Dioxide 21.6 mmol/L (20.0-27.5); Chloride 104 mmol/L (96-109); Chol/HDL Ratio 4.88 Ratio; Globulin 2.6 g/dL (1.6-3.3); Glucose 96 mg/dL (70-110); LDL Cholesterol,Calculated 84.4 mg/dL (0.0-131.0); Non-African American GFR(CKD) 117.1 (60.0-200.0); Potassium 4.6 mmol/L (3.5-5.5); Sodium 138 mmol/L (135-145); Total Protein 7.3 g/dL (6.2-8.2)
== END | disposition home or self-care (01) ==
LOC: LABWHC1 08:09
PROVIDERS: ATTEND Family Medicine
DX: Z00.00 Encounter for general adult medical examination without abnormal findings (principal)
CPT/HCPCS: 36415; 80053; 80061; 85027

== ENCOUNTER → 2022-08-18 | Outpatient (CLI) | payer MEDICAID | END | disposition home or self-care (01) | LOC: LABWHC1 09:52 | PROVIDERS: ATTEND Family Medicine | DX: R81 Glycosuria (principal) | CPT/HCPCS: 36415; 83036 ==

== ENCOUNTER → 2023-01-19 | Outpatient (CLI) | payer MEDICAID ==
--- NOTE | 2023-01-19 11:51 | USB ---
Reason for Exam: Clinical finding. Patient History: Menarche at age 16. First Full-Term at age 24. Premenopausal. Patient has history of breast feeding. Patient used Hormonal Contraceptives for 8 years. Maternal aunt had breast cancer at or over age 50. Technique: Method: Targeted. Findings: The upper section of the breast of the left breast, the axilla of the left breast and the retroareolar of the left breast were scanned. Electronically signed and approved by: Lorenzo Corral D.O. Radiologis
--- NOTE | 2023-01-19 14:42 | MM ---
Reason for Exam: Clinical finding. Baseline mammogram. Indicated Problems: Lump or thickening of the left side for 2 Month(s). Patient History: Menarche at age 16. First Full-Term at age 24. Premenopausal. Patient has history of breast feeding. Patient used Hormonal Contraceptives for 8 years. Maternal aunt had breast cancer at or over age 50. Last menstrual period: 11/03/2022 Prior Study Comparison: Patient's first Mammogram. Tissue Density: The breast tissue is heterogeneously dense. This may lower the sensitivity of mammography. Findings: Analyzed By CAD. Pattern appears essentially symmetrical. No suspicious mammographic abnormality is level marked by the palpable region. Follow-up with ultrasound is recommended No suspicious groups of microcalcifications, spiculated or lobular masses, architectural distortion or other secondary signs of malignancy are mammographically apparent. Overall Assessment: Incomplete: need additional imaging evaluation, BI-RAD 0 Management: Diagnostic Breast Ultrasound of the left breast. A negative mammogram report should not preclude additional follow up of suspicious palpable abnormalities. Patient should continue monthly self breast exam. A clinical breast exam by your physician is recommended on an annual basis and results should be correlated with mammographic findings. Electronically signed and approved by: Lorenzo Corral D.O. Radiologis
== END | disposition home or self-care (01) ==
LOC: RADMAMWWP 10:49
PROVIDERS: ATTEND Obstetrics & Gynecology
DX: N64.4 Mastodynia (principal); Z80.3 Family history of malignant neoplasm of breast
CPT/HCPCS: 77062; 77066

== ENCOUNTER → 2024-02-13 | Outpatient (CLI) | payer MEDICAID ==
[2024-02-13 14:46] LABS: Basophils # (A) 0.05 X 10*3/uL (0.00-0.10); Basophils % (A) 0.5 %; Eosinophils # (A) 0.18 X 10*3/uL (0.04-0.35); Eosinophils % (A) 1.6 %; HCT 38.2 % (37.2-46.3); Lymphocytes # (A) 3.55 X 10*3/uL (0.90-5.00); Lymphocytes % (A) 32.2 %; MCH 29.9 pg (27.0-32.0); MCV 87.8 FL (80.0-97.0); Mean Platelet Volume 10.1 FL (9.5-12.2); Monocytes # (A) 0.58 X 10*3/uL (0.20-1.00); Monocytes % (A) 5.3 %; NRBC Per 100 WBC 0 X 10*3/uL (0.00-0.01); Neutrophils # (A) 6.61 X 10*3/uL (1.80-7.70); Neutrophils % (A) 59.9 %; Platelet Count 311 X 10*3/uL (140-440); RBC 4.35 X 10*6/uL (4.10-5.20); RDW 12.3 % (11.5-14.5); WBC 11.03 X 10*3/uL (4.50-10.00)
[2024-02-13 14:59] LABS: ALT 39 U/L (8-44); AST 38 U/L (13-35); Albumin 4.7 g/dL (3.8-4.9); Albumin/Globulin Ratio 1.62 Ratio (1.60-3.17); Alkaline Phosphatase 80 U/L (41-126); BUN/Creat Ratio 23.67 Ratio (12.00-20.00); Blood Urea Nitrogen 14.2 mg/dL (9.0-27.0); Calcium 9.3 mg/dL (8.7-10.3); Carbon Dioxide 26.2 mmol/L (21.6-31.8); Chloride 103 mmol/L (96-109); Globulin 2.9 g/dL (1.6-3.3); Glucose 112 mg/dL (70-110); Potassium 3.9 mmol/L (3.5-5.5); Sodium 141 mmol/L (135-145); Total Bilirubin 0.2 mg/dL (0.3-1.2); Total Protein 7.6 g/dL (6.2-8.2)
== END | disposition home or self-care (01) ==
LOC: LABPAT 10:38
PROVIDERS: ATTEND Family Medicine
DX: Z01.812 Encounter for preprocedural laboratory examination (principal); G56.01 Carpal tunnel syndrome, right upper limb; E66.3 Overweight; R53.83 Other fatigue
CPT/HCPCS: 80053; 85025

== ENCOUNTER 2024-02-15 09:53 | Day surgery (SDC) | payer MEDICAID ==
[2024-02-13 10:17] VITALS: BMI 36.0
--- NOTE | 2024-02-14 10:31 | P.HPOR ---
History of Present Illness H&P Date: 02/14/24 Subjective: This is a 33 year old female that presents today for initial evaluation regarding a 6 month history of progressively worsening right hand paresthesias in the thumb, index, middle and ring fingers. The patient has tried bracing with little relief. They deny any inciting event or neck pain. 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 She notes her middle and ring fingers are becoming increasingly symptomatic and they often stay numb now hours at a time nearly every day and wake her from sleep on a nightly basis. Physical Examination: RUE: AIN/PIN/Radial/Ulnar/Median motor intact. Radial/Ulnar/Median SILT. 2+/4 Radial/Ulnar pulses palpated. 5/5 APB, 5/5 FDI. Negative Finkelsteins, negative CMC grind, positive Durkan's compression. Impression: 1.) Right carpal tunnel syndrome Plan: Diagnosis and treatment options were discussed with the patient. The patient has failed conservative treatment and would like to pursue a right endoscopic vs open carpal tunnel release. Risks and benefits of surgery including bleeding, infection, damage to surrounding tissue, need for further surgery, possible need to convert to open procedure, residual numbness were discussed and the patient wished to go forward with surgery. I anticipate 1-2 weeks off work, this can be extended if needed at first post op appointment. -Nicola Sandra DO Orthopedic Hand/Upper Extremity Surgeon Past Medical History Past Medical History: GERD/Reflux, Hyperlipidemia, Hypertension Additional Past Medical History / Comment(s): Gestational Diabetes, chronic HTN, IBS, No meds for Hyperlipidemia-"watching for right now.", Doesn't take medication for HTN. History of Any Multi-Drug Resistant Organisms: None Reported Past Surgical History: Cholecystectomy Additional Past Surgical History / Comment(s): sinus surgery , gallbladder removed 02/11/2021, wisdom teeth removed. Past Anesthesia/Blood Transfusion Reactions: No Reported Reaction, Motion Sickness, Postoperative Nausea & Vomiting (PONV) Additional Past Anesthesia/Blood Transfusion Reaction / Comment(s): No hx of blood transfusion. Smoking Status: Never smoker - Past Family History Mother Family Medical History: Diabetes Mellitus, Hyperlipidemia, Hypertension Father Family Medical History: Diabetes Mellitus, Hyperlipidemia, Hypertension, Myocardial Infarction (VT) Additional Family Medical History / Comment(s): stents, smoker Medications and Allergies Home Medications Medication Instructions Recorded Confirmed Type Labetalol [Trandate] 100 mg PO BID 10/19/19 02/11/21 History Sertraline HCl [Zoloft] 50 mg PO HS 02/11/21 02/11/21 History norethindrone-e.estradioL-iron 1 tab PO HS 02/11/21 02/11/21 History [Aurovela Fe 1.5 mg-30 Mcg Tab] HYDROcodone/APAP 5-325MG [[place] 1 tab PO Q6HR PRN 3 Days #12 tab 02/12/21 Rx 5-325] Ibuprofen [Motrin] 600 mg PO Q8HR PRN #30 tab 02/12/21 Rx Allergies Allergy/AdvReac Type Severity Reaction Status Date / Time Environmental Allergy Mild CONGESTION Uncoded 02/13/24 09:31 Physical Examination Osteopathic Statement: *. No significant issues noted on an osteopathic struc tural exam other than those noted in the History and Physical/Consult.
[~2024-02-15 09:53] MED LIST changes: +DEXAMETHASONE SOD PHOSPHATE 4 MG/ML 1 ML VIAL IV ONE; +HYDROmorphone 0.5 MG/0.5 ML SYRINGE IVP PRN; -LACTATED RINGERS 1,000 ML IV SCH; +LIDOCAINE 1% (10MG/ML) FOR IV START INTRADERMA PRN; +MIDAZOLAM 2 MG/2 ML VIAL IV PRN; +ONDANSETRON 4 MG/2 ML VIAL IVP ONE; +Pre Op ABX Message 1 EACH MISC MISCELLANE ONE
[2024-02-15] MEDS: LACTATED RINGERS 1,000 ML IV SCH (10:00)
[2024-02-15] MEDS ORDERED: ONDANSETRON 4 MG/2 ML VIAL ONE (10:10)
[2024-02-15] MEDS: SCOPOLAMINE 1 MG/72 HR PATCH TRANSDERM ONE (10:19)
[2024-02-15] MEDS: DEXAMETHASONE SOD PHOSPHATE 4 MG/ML 1 ML VIAL IVP ONE (10:19)
[2024-02-15] MEDS: ONDANSETRON 4 MG/2 ML VIAL IVP ONE (10:19)
[2024-02-15] MEDS: MIDAZOLAM 2 MG/2 ML VIAL IVP ONE (10:27)
[2024-02-15 10:52] VITALS: RESP 16; TEMP 98.6
[2024-02-15] MEDS ORDERED: MIDAZOLAM 2 MG/2 ML VIAL ONE (10:58)
[2024-02-15] MEDS ORDERED: KETAMINE HCL IN 0.9 % NACL 50 MG/5 ML SYRINGE ONE (10:58)
[2024-02-15] MEDS ORDERED: diphenhydrAMINE 50 MG/ML 1 ML VIAL ONE (10:58)
[2024-02-15] MEDS ORDERED: DEXAMETHASONE SOD PHOSPHATE 4 MG/ML 1 ML VIAL ONE (10:58)
[2024-02-15] MEDS ORDERED: PROPOFOL 10 MG/ML 20 ML VIAL IV ONE (10:58)
[2024-02-15] MEDS ORDERED: fentaNYL (PF) 50 MCG/ML 2 ML AMP ONE (10:58)
[2024-02-15] MEDS: LIDOCAINE 2% INJ 20 MG/ML SQ ONE (11:04)
[2024-02-15] MEDS: BUPIVACAINE (PF) 0.5% 30 ML VIAL SQ ONE (11:04)
--- NOTE | 2024-02-15 11:28 | P.OP ---
Date of Procedure: 02/15/24 Preoperative Diagnosis: Right carpal tunnel syndrome Postoperative Diagnosis: Right carpal tunnel syndrome Procedure(s) Performed: Right endoscopic carpal tunnel release Anesthesia: MAC Surgeon: Nicola Sandra [employer] Counter Clerk #1: Santosh Sherman Estimated Blood Loss (ml): 0 Pathology: none sent Condition: stable Disposition: PACU Description of Procedure: This is a 33 year old female who presents today for a right endoscopic carpal tunnel release after having failed conservative treatment in the past. Risks and benefits of surgery were discussed with the patient including bleeding, damage to surrounding tissue, infection, need to convert to open procedure, need for further surgery as well as risks of anesthesia including pulmonary embolism and even and the patient wished to proceed with surgical intervention. The patients was seen in the pre-operative area by myself. Consent and H&P were completed and updated. The correct extremity was marked in the pre-operative area by myself and all other questions were answered. Operative Narrative: The patient was brought to the operating room by the department of anesthesia. They remained on the portable stretcher and a rolling hand table was brought to the side of the operative extremity. Pre-operative time out was performed indicating the correct patient, procedure and laterality. All in the room agreed. The patient was then drifted off to sleep by the department of an esthesia. MAC anesthesia was utilized and a 50:50 mixture of 1% Lidocaine and 0.5% bupivacaine was injected into the subcutaneous tissues of the palmar skin, 8ccs total. A nonsterile tourniquet was then applied to the operative extremity and the right upper extremity was then prepped and draped in normal sterile fashion. The operative extremity was the exsanguinated with an esmarch bandage and the tourniquet was inflated to 250mmHg. 15 blade scalpel was utilized to make a transverse incision on the palmar skin just ulnar to the palmaris longus tendon at the level of the distal wrist creas e. Ragnell retractor was then placed radially and blunt dissection was performed to reveal the distal forearm fascia. This was lifted with fine Jerrell pick ups and Littler tenotomy scissors were then used to open the forearm fascia transversely and a double skin hook was then placed. Hamate finder was placed into the carpal tunnel and then sequential sized dilators were inserted followed by the synovial elevator to separate the flexor tenosynovium from the undersurface of the transverse carpal ligament and a washboard texture was felt. The MicroAire endoscopic carpal tunnel release system gun was the then inserted into the carpal tunnel hugging the deep portion of the transverse carpal ligament in line with the base of the ring finger. Transverse fibers of the ligament were directly visualized. Pressure was applied on the palm to reveal the distal extent of the transverse carpal ligament. The blade was then deployed and the distal half of the transverse carpal ligament was released. The scope was then brought distal again and remaining transverse fibers were incised with the blade. The proximal half of the transverse carpal ligament was then divided and again the scope was advanced distal and remaining transverse fibers were incised with the blade. The radial and ulnar leaflets were directly visualized and mobile consistent with complete release. Tenotomy scissors were then ut ilized to release the remaining distal forearm fascia under direct visualization taking care to preserve the palmar cutaneous branch of the median nerve. Skin closure was performed with interrupted 4-0 Monocryl suture followed by steri strips. Sterile dressing was applied consisting 4x4s, Webril, and an alessandra bandage. Tourniquet was let down and the hand immediately was well perfused. The patient was then woken by the department of anesthesia and transferred to PACU in stable condition. Santosh DEE was present for the case in its entirety and assisted in major portions of the case and protection of vital neurovascular structures. Nicola Sandra D.O. Orthopedic Hand/Upper Extremity Surgeon
[2024-02-15] MEDS: droPERidol 5 MG/2 ML VIAL IVP ONE (11:31)
[2024-02-15 11:52] VITALS: BP 130/77; PULSE 79
[2024-02-15 14:54] LABS: Chol/HDL Ratio 5.31 Ratio; LDL Cholesterol,Calculated 106.6 mg/dL (0.0-131.0)
== END 2024-02-15 12:53 | disposition home or self-care (01) ==
LOC: OR 09:53
PROVIDERS: ATTEND Orthopaedic Surgery Hand Surgery
DX: G56.01 Carpal tunnel syndrome, right upper limb (principal); E78.5 Hyperlipidemia, unspecified; I10 Essential (primary) hypertension; K21.9 Gastro-esophageal reflux disease without esophagitis; K58.9 Irritable bowel syndrome, unspecified; Z90.49 Acquired absence of other specified parts of digestive tract; Z79.899 Other long term (current) drug therapy; Z91.048 Other nonmedicinal substance allergy status
CPT/HCPCS: 81025; 80061; 29848; J2001; J2250; J1200; J1100; J2405; J3010; J2704; J1790; J0665

== ENCOUNTER 2024-06-18 15:12 | Observation (INO) | payer MEDICAID ==
[2024-06-18] MEDS: IPRATROPIUM-ALBUTEROL 3 ML NEB INHALATION STA ×2 (15:42→16:32)
[2024-06-18] MEDS: SODIUM CHLORIDE 0.9% 1,000 ML IV STA ×2 (16:02→17:00)
[2024-06-18] MEDS: MAGNESIUM SULFATE-D5W PMX 1 GM in DEXTROSE/WATER 1 100ML.BAG IVPB STA (16:03)
[2024-06-18] MEDS: methylPREDNISolone SOD SUCCI 125 MG/2 ML VIAL IV STA (16:03)
[2024-06-18 16:06] LABS: Basophils % (A) 0 %; Eosinophils # (A) 0.1 k/uL (0-0.7); Eosinophils % (A) 1 %; HCT 37.8 % (34.0-46.0); HGB 12.8 gm/dL (11.4-16.0); Lymphocytes # (A) 2.6 k/uL (1.0-4.8); Lymphocytes % (A) 24 %; MCH 30.1 pg (25.0-35.0); MCHC 33.9 g/dL (31.0-37.0); MCV 88.8 fL (80.0-100.0); Mean Platelet Volume 7.7; Monocytes # (A) 0.5 k/uL (0-1.0); Monocytes % (A) 4 %; Neutrophils # (A) 7.6 k/uL (1.3-7.7); Neutrophils % (A) 69 %; Platelet Count 315 k/uL (150-450); RBC 4.25 m/uL (3.80-5.40); RDW 12.3 % (11.5-15.5); WBC 11.1 k/uL (3.8-10.6)
--- NOTE | 2024-06-18 16:27 | XR ---
EXAMINATION TYPE: XR chest 2V DATE OF EXAM: 06/18/2024 COMPARISON: NONE HISTORY: Difficulty breathing TECHNIQUE: Frontal and lateral views of the chest are obtained. FINDINGS: There is a partially consolidative opacity in the right middle lobe consistent with pneumonia. There is no pleural effusion or pneumothorax. Heart and pulmonary vasculature are normal. The osseous structures are intact. IMPRESSION: Findings consistent with right middle lobe pneumonia. Short-term follow-up to resolution is recommend ed. IMPRESSION: No acute cardiopulmonary process. [facility], Workstation: DENISE 06/18/2024 4:24 PM
[2024-06-18 16:29] LABS: ALT 34 U/L (4-34); AST 37 U/L (14-36); African American GFR (CKD) >90 (>60 ml/min/1.73 sqM); Albumin 4.8 g/dL (3.5-5.0); Alkaline Phosphatase 73 U/L (38-126); Anion Gap 16 mmol/L; Blood Urea Nitrogen 23 mg/dL (7-17); Calcium 10.2 mg/dL (8.4-10.2); Carbon Dioxide 20 mmol/L (22-30); Chloride 103 mmol/L (98-107); Glucose 100 mg/dL (74-99); Magnesium 1.8 mg/dL (1.6-2.3); Non-African American GFR(CKD) >90 (>60 ml/min/1.73 sqM); Potassium 3.7 mmol/L (3.5-5.1); Sodium 139 mmol/L (137-145); Total Bilirubin 0.5 mg/dL (0.2-1.3)
[2024-06-18] MEDS ORDERED: ACETAMINOPHEN TAB 325 MG TAB PO PRN (16:46)
[2024-06-18] MEDS ORDERED: NALOXONE 0.4 MG/ML 1 ML VIAL IV PRN (16:46)
--- NOTE | 2024-06-18 16:49 | ED ---
General Adult HPI - General Chief complaint: Shortness of Breath Stated complaint: ALLEN Time Seen by Provider: 06/18/24 15:28 Source: patient, RN notes reviewed, old records reviewed Mode of arrival: ambulatory Limitations: no limitations - History of Present Illness Initial comments: Patient is a 33-year-old female presents emergency department complaining of shortness of breath. 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 Has been dealing with asthma exacerbation and upper respiratory infection for multiple days. Has been on a Z-Tarun at home. Had some fevers previously with the last one occurring yesterday. Endorses chest tightness. Has taken multiple COVID and flu test which were negative. Presents today due to worsening symptoms. She has decreased vocalizations, audible wheezes. No hypoxia at rest. Denies chest pain, abdominal pain, nausea, vomiting, diarrhea. Presents for further evaluation at this time. - Related Data Home Medications Medication Instructions Recorded Confirmed ALPRAZolam [Xanax] 0.25 mg PO QID PRN 06/18/24 06/18/24 Azithromycin [Zithromax Z Pack] See Taper PO DIRECTED 06/18/24 06/18/24 Sertraline [Zoloft] 100 mg PO DAILY 06/18/24 06/18/24 buPROPion XL [Wellbutrin XL] 150 mg PO DAILY 06/18/24 06/18/24 methylPREDNISolone [Medrol Dose See Taper PO DIRECTED 06/18/24 06/18/24 Pack] Allergies Allergy/AdvReac Type Severity Reaction Status Date / Time Environmental Allergy Mild CONGESTION Uncoded 06/18/24 16:44 Review of Systems ROS Statement: Those systems with pertinent positive or pertinent negative responses have been documented in the HPI. Review of Systems: CONST: Denies fever EYES: Denies blurry vision ENT: Endorses nasal congestion C/V: Denies Chest pain RESP: Endorses cough, wheezing GI: Denies abdominal pain : Denies dysuria SKIN: Denies rash. MSK: Denies joint pain. NEURO: Denies headache ROS Other: All systems not noted in ROS Statement are negative. Past Medical History Past Medical History: GERD/Reflux, Hyperlipidemia, Hypertension Additional Past Medical History / Comment(s): Gestational Diabetes, chronic HTN, IBS, No meds for Hyperlipidemia-"watching for right now.", Doesn't take medication for HTN. History of Any Multi-Drug Resistant Organisms: None Reported Past Surgical History: Cholecystectomy Additional Past Surgical History / Comment(s): sinus surgery , gallbladder removed 02/11/2021, wisdom teeth removed. Past Anesthesia/Blood Transfusion Reactions: No Reported Reaction, Motion Sickness, Postoperative Nausea & Vomiting (PONV) Additional Past Anesthesia/Blood Transfusion Reaction / Comment(s): No hx of blood transfusion. Past Psychological History: Anxiety Smoking Status: Never smoker Past Alcohol Use History: None Reported, Rare Past Drug Use History: None Reported - Past Family History Mother Family Medical History: Diabetes Mellitus, Hyperlipidemia, Hypertension Father Family Medical History: Diabetes Mellitus, Hyperlipidemia, Hypertension, Myocardial Infarction ([place]) Additional Family Medical History / Comment(s): stents, smoker General Exam - General Exam Comments Initial Comments: General: Appears in mild respiratory distress. HEAD: Normal with no signs of head trauma. EYES: PERRLA, EOMI, conjunctiva normal, no discharge. ENT: Hearing grossly intact, normal oropharynx. RESPIRATORY: Tight breath sounds bilaterally with central wheezing. No significant hypoxia on room air. Mild increased work of breathing. C/V: Regular rate and rhythm. S1 and S2 auscultated, no edema, peripheral pulses 2+ and intact throughout ABD: Abd is soft, nontender, nondistended EXT: Normal range of motion, no obvious deformity SKIN: No rashes or lesions observed on exposed skin. NEURO: Alert and oriented x 4. Limitations: no limitations Course Vital Signs 06/18/24 06/18/24 06/18/24 15:14 15:23 15:43 Temperature 98.2 F Pulse Rate 95 82 Respiratory 20 24 Rate Blood Pressure 167/95 O2 Sat by Pulse 99 Oximetry 06/18/24 06/18/24 06/18/24 15:54 16:33 16:43 Temperature Pulse Rate 85 92 90 Respiratory Rate Blood Pressure O2 Sat by Pulse Oximetry 06/18/24 18:16 Temperature Pulse Rate 102 H Respiratory 24 Rate Blood Pressure 132/79 O2 Sat by Pulse 96 Oximetry Medical Decision Making - Medical Decision Making Was pt. sent in by a medical professional or institution (, PA, CHARGE ENTRY, urgent care, hospital, or [place] [facility] [place] facility...) When possible be specific @ -No Did you speak to anyone other than the patient for history (EMS, parent, family, police, friend...)? What history was obtained from this source @ -No Did you review nursing and triage notes (agree or disagree)? Why? @ -I reviewed and agree with nursing and triage notes Were old charts reviewed (outside hosp., previous admission, EMS record, old EKG, old radiological studies, urgent care reports/EKG's, [place] health [place] facility records)? Report findings @ -No old charts were reviewed Differential Diagnosis (chest pain, altered mental status, abdominal pain women, abdominal pain men, vaginal bleeding, weakness, fever, dyspnea, syncope, headache, dizziness, GI bleed, back pain, seizure, CVA, palpatations, mental health, musculoskeletal)? @ -Differential Dyspnea: Coronary syndrome, arrhythmia, tamponade, asthma, COPD, pulmonary embolism, pneumonia, pneumothorax, pulmonary effusion, anaphylaxis, diabetic ketoacidosis, flailed chest, pulmonary contusion, diaphragmatic rupture, anemia, neuromuscular, this is not meant to be an all-inclusive list. EKG interpreted by me (3pts min.). @ -As above X-rays interpreted by me (1pt min.). @ -Chest x-ray reveals right middle lobe pneumonia. CT interpreted by me (1pt min.). @ -None done U/S interpreted by me (1pt. min.). @ -None done What testing was considered but not performed or refused? (CT, X-rays, U/S, labs)? Why? @ -None What meds were considered but not given or refused? Why? @ -None Did you discuss the management of the patient with other professionals (professionals i.e. , PA, [facility] ENTRY, lab, RT, psych nurse, dialysis social worker, respiratory therapy director, teacher, military police officer, family service caseworker)? Give summary @ -Discussed with admitting physician, Dr. Brown who accepted the admission. Was smoking cessation discussed for >3mins.? @ -No Was critical care preformed (if so, how long)? @ -No Were there social determinants of health that impacted care today? How? (Homelessness, low income, unemployed, alcoholism, drug addiction, transport ation, low edu. Level, literacy, decrease access to med. care, senior care, rehab)? @ -No Was there de-escalation of care discussed even if they declined (Discuss DNR or withdrawal of care, Hospice)? DNR status @ -No What co-morbidities impacted this encounter? (DM, HTN, Smoking, COPD, CAD, Cancer, CVA, ARF, Chemo, Hep., AIDS, mental health diagnosis, sleep apnea, morbid obesity)? @ -Asthma Was patient admitted / discharged? Hospital course, mention meds given and route, prescriptions, significant lab abnormalities, going to OR and other pertinent info. @ -Patient presents with upper respiratory infection and asthma exacerbation. Vitals within acceptable limits except for slight increased work of breathing. No hypoxia. We will obtain basic labs, chest x-ray. Patient will be given a double breathing treatment, IV magnesium, IV fluids, IV Solu-Medrol. Patient was in agreement this plan. Screen EKG shows no signs of acute ischemia. Chest x-ray shows a right-sided pneumonia. Labs remarkable for mild leukocytosis of 11.1. COVID and flu swab still pending at this time. On reevaluation, patient is still significantly wheezy. Discussed with her that as she has a newer pneumonia on the right side despite being on outpatient antibiotics I did recommend admission. She was in agreement this plan. Will continue with IV steroids, breathing treatments, as well as IV antibiotics. She will be given IV azithromycin as well as Rocephin. We will continue with IV steroids as well as breathing treatments. Patient was in agreement this plan. I spoke with admitting physician Dr. Brown who accepted the admission. Undiagnosed new problem with uncertain prognosis? @ -No Drug Therapy requiring intensive monitoring for toxicity (Heparin, Nitro, Insulin, Cardizem)? @ -No Were any procedures done? @ -No Diagnosis/symptom? @ -Asthma, pneumonia Acute, or Chronic, or Acute on Chronic? @ -Acute Uncomplicated (without systemic symptoms) or Complicated (systemic symptoms)? @ -Complicated Side effects of treatment? @ -No Exacerbation, Progression, or Severe Exacerbation? @ -No Poses a threat to life or bodily function? How? (Chest pain, [place], [place], pneumonia, PE, COPD, DKA, ARF, appy, cholecystitis, CVA, Diverticulitis, Homicidal, Suicidal, threat to staff... and all critical care pts) @ -Yes - Lab Data Result diagrams: 06/18/24 15:58 06/18/24 15:58 Lab Results 06/18/24 06/18/24 06/18/24 Range/Units 15:58 15:58 15:58 WBC 11.1 H (3.8-10.6) k/uL RBC 4.25 (3.80-5.40) m/uL Hgb 12.8 (11.4-16.0) gm/dL Hct 37.8 (34.0-46.0) % MCV 88.8 (80.0-100.0) fL MCH 30.1 (25.0-35.0) pg MCHC 33.9 (31.0-37.0) g/dL RDW 12.3 (11.5-15.5) % Plt Count 315 (150-450) k/uL MPV 7.7 Neutrophils % 69 % Lymphocytes % 24 % Monocytes % 4 % Eosinophils % 1 % Basophils % 0 % Neutrophils # 7.6 (1.3-7.7) k/uL Lymphocytes # 2.6 (1.0-4.8) k/uL Monocytes # 0.5 (0-1.0) k/uL Eosinophils # 0.1 (0-0.7) k/uL Basophils # 0.0 (0-0.2) k/uL Sodium 139 (137-145) mmol/L Potassium 3.7 (3.5-5.1) mmol/L Chloride 103 (98-107) mmol/L Carbon Dioxide 20 L (22-30) mmol/L Anion Gap 16 mmol/L BUN 23 H (7-17) mg/dL Creatinine 0.60 (0.52-1.04) mg/dL Est GFR (CKD-EPI)AfAm >90 (>60 ml/min/1.73 sqM) Est GFR (CKD-EPI)NonAf >90 (>60 ml/min/1.73 sqM) Glucose 100 H (74-99) mg/dL Plasma Lactic Acid Parth 1.5 (0.7-2.0) mmol/L Calcium 10.2 (8.4-10.2) mg/dL Magnesium 1.8 (1.6-2.3) mg/dL Total Bilirubin 0.5 (0.2-1.3) mg/dL AST 37 H (14-36) U/L ALT 34 (4-34) U/L Alkaline Phosphatase 73 (38-126) U/L Total Protein 8.0 (6.3-8.2) g/dL Albumin 4.8 (3.5-5.0) g/dL - EKG Data -: EKG Interpreted by Me EKG Comments: 12-lead Electrocardiogram Interpretation Note EKG was reviewed and interpreted by myself. 12-lead ECG performed at 1551 is interpreted by me as revealing normal sinus rhythm at a rate of 85 beats per minute. [place] is normal. RI interval is 156 ms, QRS duration is 94 ms, QTc is 450 ms. Isolated T wave inversion in III. There were no ST or T wave abnormalities to suggest myocardial ischemia or injury. R wave progression across the precordium was satisfactory. By my interpretation this EKG is non- diagnostic for acute ischemia. Disposition Clinical Impression: Asthma, Pneumonia Disposition: ADMITTED IP TO THIS HOSP Condition: Stable Time of Disposition: 16:45
[2024-06-18] MEDS ORDERED: ALPRAZolam 0.25 MG TAB PO PRN (17:03)
--- NOTE | 2024-06-18 17:44 | P.HPIM ---
History of Present Illness H&P Date: 06/18/24 Patient is a 33-year-old female with history of asthma, depression/anxiety presenting with worsening shortness of breath and failed outpatient therapy for pneumonia. She claims that she started having fevers and chills and cough on . Her daughter had recently gotten over bronchitis/upper respiratory infection. She went to an urgent care and was given antibiotics and steroids. She continued to have fevers although a total Tuesday. This morning she woke up and had worsening shortness of breath and audible wheezing. She claims that she uses as needed albuterol for asthma, and has not used it in a long time. She denies any sputum production. She claims that she also has nausea, had 1 episode of vomiting, some right upper quadrant abdominal pain with coughing. She denies any urinary or bowel complaints. She denies any lower extremity swelling. Denies any recent travel. In the ED, temperature was 98.2, pulse 95, respiratory rate 20, blood pressure 167/95, saturating at 99% on room air. WBC 11.1, bicarb 20, anion gap 16, BUN 23, creatinine 0.6, lactate 1.5. Chest x-ray independently interpreted, shows poor inspiratory effort, multifocal patchy infiltrates, more prominent on the right middle lobe. Patient started on IV steroids, and breathing treatments and started on IV antibiotics. Pertinent positives and negatives as discussed in HPI, a complete review of systems was performed and all other systems are negative. Patient seen and examined at bedside. Vital signs reviewed General: nontoxic, in mild distress, appears at stated age Derm: warm, dry Head: atraumatic, normocephalic, symmetric Eyes: EOMI, no lid lag, anicteric sclera, pupils equal round reactive to light ENT: Nose and ears atraumatic Neck: No thyromegaly, supple Mouth: no lip lesion, mucus membranes moist Cardiovascular: S1S2 tachycardic, no murmur, no edema Lungs: Bilateral rhonchi, scattered wheeze, no accessory muscle use, conversational dyspnea Abdominal: soft, nontender to palpation, no guarding, no appreciable organomegaly Ext: no gross muscle atrophy, muscle strength muscle strength 5 out of 5 in all 4 extremities, no contractures Neuro: CN II-XII grossly intact Psych: Alert, oriented, appropriate affect Assessment/Plan: Active: Sepsis secondary to community-acquired pneumonia Acute asthma exacerbation -Continue normal saline at 130 cc an hour -IV ceftriaxone 2 g every 24 hours, p.o. azithromycin 500 mg daily -Sputum cultures, blood cultures, Legionella urine antigen ordered -Pulmonology consulted -Continue DuoNebs every 4 hours scheduled, prednisone 40 mg IV every 8 hours -Added DuoNebs every 4 hours as needed -COVID test pending Anxiety/depression -Continue Xanax 0.25 mg 4 times daily as needed, bupropion 150 daily, sertraline 100 daily The patient is admitted with an anticipated less than 2 midnight stay as observation status for evaluation of sepsis secondary to pneumonia. Surrogate decision-maker: Spouse CODE STATUS: Full code DVT prophylaxis: Lovenox Anticipated discharge date: Pending clinical course Anticipated discharge place: Home A total of 55 minutes was spent on the care of this complex patient more than 50% of the time was spent in counseling and care coordination. Past Medical History Past Medical History: GERD/Reflux, Hyperlipidemia, Hypertension Additional Past Medical History / Comment(s): Gestational Diabetes, chronic HTN, IBS, No meds for Hyperlipidemia-"watching for right now.", Doesn't take medication for HTN. History of Any Multi-Drug Resistant Organisms: None Reported Past Surgical History: Cholecystectomy Additional Past Surgical History / Comment(s): sinus surgery , gallbladder removed 02/11/2021, wisdom teeth removed. Past Anesthesia/Blood Transfusion Reactions: No Reported Reaction, Motion Sickness, Postoperative Nausea & Vomiting (PONV) Additional Past Anesthesia/Blood Transfusion Reaction / Comment(s): No hx of blood transfusion. Past Psychological History: Anxiety Smoking Status: Never smoker Past Alcohol Use History: None Reported, Rare Past Drug Use History: None Reported - Past Family History Mother Family Medical History: Diabetes Mellitus, Hyperlipidemia, Hypertension Father Family Medical History: Diabetes Mellitus, Hyperlipidemia, Hypertension, Myocardial Infarction ([place]) Additional Family Medical History / Comment(s): stents, smoker Medications and Allergies Home Medications Medication Instructions Recorded Confirmed Type ALPRAZolam [Xanax] 0.25 mg PO QID PRN 06/18/24 06/18/24 History Azithromycin [Zithromax Z Pack] See Taper PO DIRECTED 06/18/24 06/18/24 History Sertraline [Zoloft] 100 mg PO DAILY 06/18/24 06/18/24 History buPROPion XL [Wellbutrin XL] 150 mg PO DAILY 06/18/24 06/18/24 History methylPREDNISolone [Medrol Dose See Taper PO DIRECTED 06/18/24 06/18/24 History Pack] Allergies Allergy/AdvReac Type Severity Reaction Status Date / Time Environmental Allergy Mild CONGESTION Uncoded 06/18/24 16:44 Physical Exam Vitals: Vital Signs Temp Pulse Resp BP Pulse Ox 06/18/24 16:43 90 06/18/24 16:33 92 06/18/24 15:54 85 06/18/24 15:43 82 06/18/24 15:23 24 06/18/24 15:14 98.2 F 95 20 167/95 99 Intake and Output 06/18/24 06/18/24 06/18/24 06:59 14:59 22:59 Other: Weight 104.326 kg Results CBC & Chem 7: 06/18/24 15:58 06/18/24 15:58 Labs: Abnormal Lab Results - Last 24 Hours (Table) 06/18/24 06/18/24 Range/Units 15:58 15:58 WBC 11.1 H (3.8-10.6) k/uL Carbon Dioxide 20 L (22-30) mmol/L BUN 23 H (7-17) mg/dL Glucose 100 H (74-99) mg/dL AST 37 H (14-36) U/L
[2024-06-18] MEDS: AZITHROMYCIN 500 MG TAB PO SCH (18:17)
[2024-06-18] MEDS: IPRATROPIUM-ALBUTEROL 3 ML NEB INHALATION SCH (19:24)
[2024-06-18] MEDS ORDERED: IPRATROPIUM-ALBUTEROL 3 ML NEB INHALATION PRN (21:01)
[2024-06-18] MEDS: ONDANSETRON 4 MG/2 ML VIAL IVP PRN (21:08)
[2024-06-19] MEDS: methylPREDNISolone SOD SUCCI 40 MG/ML 1 ML VIAL IV SCH (00:40)
--- NOTE | 2024-06-19 03:44 | P.CNPUL ---
History of Present Illness Consult date: 06/19/24 Requesting physician: Gian Saunders Reason for consult: asthma, pneumonia Chief complaint: Cough, fever, shortness of breath History of present illness: Patient is a 33-year-old white female with past medical history significant for mild intermittent asthma, hyperlipidemia, hypertension, obesity, gestational diabetes, GERD. Her PCP is Dr. Koroma. 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 States that on , she developed a persistent cough that was occasionally productive with green phlegm. There is associated intermittent fevers, with a Tmax of 103.7 F. She has been progressively more short of breath. Did go to [facility] urgent care [place] on Tuesday, and diagnosed with bronchitis. She was given a course of steroids, Z-Tarun, and breathing treatment. She has an as needed albuterol inhaler, prior to this, has not been used in years. Since , she has been using her rescue inhaler quite regularly, initially has relief for 1 to 2 hours, and then becomes short of breath with wheezing. She states that her , daughter, and son were recently sick a couple weeks ago. Negative for influenza, RSV, COVID. Chest x- ray done on admission shows a right middle lobe infiltrate. Interestingly, procalcitonin level is low at 0.17. CBC: WBC count 11.1, hemoglobin 12.8, hematocrit 37.8, platelets 315. CMP: Sodium 139, potassium 3.7, chloride 103, serum bicarb 20, BUN 23, creatinine 0.6, glucose 100. Lactic 1.5. LFTs unremarkable. Patient is currently sitting up in bed. She is on room air. She is audibly wheezing. No accessory muscle use. She has been tolerating eating and drinking. She is little tachycardic, probably related to bronchodilators. She is on a combination of DuoNebs every 4 hours with as needed DuoNebs every 2 hours. Has been started on IV Solu-Medrol. Continues on IV antibiotics in the form of azithromycin and Rocephin. Currently afebrile. Nontoxic appearance. Review of Systems Constitutional: Reports chills, Reports fatigue, Reports fever, Reports poor appetite, Denies weight gain, Denies weight loss Ears, nose, mouth and throat: Denies headache, Denies nasal congestion, Denies post-nasal drip, Denies sinus pressure, Denies sore throat Cardiovascular: Denies chest pain, Denies leg edema, Denies orthopnea, Denies palpitations, Denies syncope Respiratory: Reports as per HPI Gastrointestinal: Reports nausea, Denies abdominal pain, Denies change in bowel habits, Denies constipation, Denies diarrhea, Denies loss of appetite, Denies vomiting Genitourinary: Denies dysuria, Denies hematuria, Denies urinary frequency Musculoskeletal: Denies limitation of motion, Denies muscle weakness Integumentary: Denies rash Neurological: Denies confusion, Denies headaches, Denies seizures, Denies syncope Psychiatric: Reports anxiety Past Medical History Past Medical History: Asthma, GERD/Reflux, Hyperlipidemia Additional Past Medical History / Comment(s): Gestational Diabetes, IBS, No meds for Hyperlipidemia-"watching for right now." "HTN while ." History of Any Multi-Drug Resistant Organisms: None Reported Past Surgical History: Cholecystectomy, Orthopedic Surgery Additional Past Surgical History / Comment(s): sinus surgery , gallbladder removed 02/11/2021, wisdom teeth removed. "right carpal tunnel sx." Past Anesthesia/Blood Transfusion Reactions: No Reported Reaction, Motion Sickness, Postoperative Nausea & Vomiting (PONV) Additional Past Anesthesia/Blood Transfusion Reaction / Comment(s): No hx of blood transfusion. Past Psychological History: Anxiety Additional Psychological History / Comment(s): OCD Smoking Status: Never smoker Past Alcohol Use History: Rare Past Drug Use History: None Reported - Past Family History Mother Family Medical History: Diabetes Mellitus, Hyperlipidemia, Hypertension Father Family Medical History: Diabetes Mellitus, Hyperlipidemia, Hypertension, Myocardial Infarction ([place]) Additional Family Medical History / Comment(s): stents, smoker Medications and Allergies Home Medications Medication Instructions Recorded Confirmed Type ALPRAZolam [Xanax] 0.25 mg PO QID PRN 06/18/24 06/18/24 History Azithromycin [Zithromax Z Pack] See Taper PO DIRECTED 06/18/24 06/18/24 History Sertraline [Zoloft] 100 mg PO DAILY 06/18/24 06/18/24 History buPROPion XL [Wellbutrin XL] 150 mg PO DAILY 06/18/24 06/18/24 History methylPREDNISolone [Medrol Dose See Taper PO DIRECTED 06/18/24 06/18/24 History Pack] Allergies Allergy/AdvReac Type Severity Reaction Status Date / Time Environmental Allergy Mild CONGESTION Uncoded 06/18/24 16:44 Physical Exam Vitals: Vital Signs Temp Pulse Pulse Resp BP BP Pulse Ox 06/19/24 00:37 108 H 06/19/24 00:27 104 H 06/18/24 20:45 98.2 F 111 H 24 142/74 96 06/18/24 20:17 111 H 22 130/60 98 06/18/24 19:35 115 H 06/18/24 19:24 108 H 06/18/24 18:16 102 H 24 132/79 96 06/18/24 16:43 90 06/18/24 16:33 92 06/18/24 15:54 85 06/18/24 15:43 82 06/18/24 15:23 24 06/18/24 15:14 98.2 F 95 20 167/95 99 Intake and Output 06/18/24 06/18/24 06/19/24 14:59 22:59 06:59 Other: Weight 104.326 kg GENERAL EXAM: Alert, 33-year-old obese white female, sitting up in bed, audible wheezing, in a mild amount of respiratory distress HEAD: Normocephalic and atraumatic EYES: Normal reaction of pupils, equal size. NOSE: Clear with pink turbinates. THROAT: No erythema or exudates. NECK: No masses, no JVD. CHEST: No chest wall deformity. LUNGS: Equal air entry with diffuse expiratory wheezes. On room air. No conversational dyspnea or accessory muscle use while at rest CVS: S1 and S2 normal with no audible murmur, regular rhythm. No extra heart sounds ABDOMEN: No hepatosplenomegaly, active bowel sounds, no guarding or rigidity. SPINE: No scoliosis or deformity SKIN: No rashes CENTRAL NERVOUS SYSTEM: No focal deficits, tone is normal in all 4 extremities. EXTREMITIES: There is no peripheral edema, clubbing, or cyanosis. Peripheral pulses are intact. Results - Laboratory Findings CBC and BMP: 06/18/24 15:58 06/18/24 15:58 Abnormal lab findings: Abnormal Labs 06/18/24 06/18/24 15:58 15:58 WBC 11.1 H Carbon Dioxide 20 L BUN 23 H Glucose 100 H AST 37 H - Diagnostic Findings Chest x-ray: image reviewed Assessment and Plan Assessment: Right middle lobe community-acquired pneumonia, chest x-ray taken on arrival s hows right middle lobe infiltrate. Negative for influenza, RSV, COVID. Acute asthma exacerbation, secondary to above Acute dyspnea Sinus tachycardia, probably exacerbated by medication effect and beta-2 agonist. History of hyperlipidemia History of GERD without esophagitis Obesity, with a BMI of 36 kg/m History of anxiety Plan: Patient's medications, labs, chest x-ray reviewed. There is an obvious right middle lobe opacity. Interestingly, procalcitonin level low at 0.16. Negative for influenza, RSV, COVID. She has been started on empiric antibiotics in the form of Rocephin and azithromycin for community-acquired pneumonia. Blood culture pending. Legionella urine antigen pending Collect sputum culture if possible Continue combination of bronchodilators, add inhaled corticosteroid, and continue IV Solu-Medrol. On room air DVT prophylaxis: Lovenox GI prophylaxis: Protonix Will continue to follow. I have personally seen and examined the patient, performed the documentation and the assessment and plan as written. Number of minutes spent on the visit:20 Time with Patient: Greater than 30
[2024-06-19] MEDS: methylPREDNISolone SOD SUCCI 125 MG/2 ML VIAL IV SCH (05:56)
[2024-06-19] MEDS: BUDESONIDE 1 MG/2 ML NEBU INHALATION SCH (07:52)
[2024-06-19 08:38] LABS: Basophils # (A) 0.02 X 10*3/uL (0.00-0.10); Basophils % (A) 0.2 %; Eosinophils # (A) 0 X 10*3/uL (0.04-0.35); Eosinophils % (A) 0 %; HCT 36.1 % (37.2-46.3); HGB 12.2 g/dL (12.0-15.0); Lymphocytes # (A) 1.35 X 10*3/uL (0.90-5.00); Lymphocytes % (A) 11.9 %; MCHC 33.8 g/dL (32.0-37.0); MCV 88.7 FL (80.0-97.0); Mean Platelet Volume 9.8 FL (9.5-12.2); Monocytes # (A) 0.34 X 10*3/uL (0.20-1.00); NRBC Per 100 WBC 0 X 10*3/uL (0.00-0.01); Neutrophils # (A) 9.48 X 10*3/uL (1.80-7.70); Neutrophils % (A) 83.7 %; Platelet Count 295 X 10*3/uL (140-440); RBC 4.07 X 10*6/uL (4.10-5.20); RDW 12.3 % (11.5-14.5); WBC 11.33 X 10*3/uL (4.50-10.00)
[2024-06-19] MEDS: ENOXAPARIN 40 MG/0.4 ML SYRINGE SQ SCH (08:40)
[2024-06-19] MEDS: SERTRALINE 100 MG TAB PO SCH (08:40)
[2024-06-19] MEDS: buPROPion XL 150 MG TAB.ER.24H PO SCH (08:40)
[2024-06-19] MEDS: PANTOPRAZOLE 40 MG/10 ML VIAL IV SCH (08:49)
[2024-06-19 08:58] LABS: ALT 30 U/L (8-44); AST 21 U/L (13-35); Albumin 4.3 g/dL (3.8-4.9); Albumin/Globulin Ratio 1.59 Ratio (1.60-3.17); Alkaline Phosphatase 74 U/L (41-126); BUN/Creat Ratio 20.17 Ratio (12.00-20.00); Blood Urea Nitrogen 12.1 mg/dL (9.0-27.0); Calcium 8.8 mg/dL (8.7-10.3); Carbon Dioxide 21.5 mmol/L (21.6-31.8); Chloride 104 mmol/L (96-109); Globulin 2.7 g/dL (1.6-3.3); Glucose 178 mg/dL (70-110); Potassium 4.1 mmol/L (3.5-5.5); Sodium 138 mmol/L (135-145); Total Bilirubin <0.2 mg/dL (0.3-1.2)
[2024-06-19] MEDS: BENZONATATE 100 MG CAP PO PRN (11:17)
--- NOTE | 2024-06-19 13:55 | P.PN ---
Subjective Progress Note Date: 06/19/24 Hospital course: Patient is a 33-year-old female with history of asthma, depression/anxiety presenting with worsening shortness of breath and failed outpatient therapy for pneumonia. She claims that she started having fevers and chills and cough on . Her daughter had recently gotten over bronchitis/upper respiratory infection. She went to an urgent care and was given antibiotics and steroids. She continued to have fevers although a total Tuesday. This morning she woke up and had worsening shortness of breath and audible wheezing. She claims that she uses as needed albuterol for asthma, and has not used it in a long time. She denies any sputum production. She claims that she also has nausea, had 1 episode of vomiting, some right upper quadrant abdominal pain with coughing. She denies any urinary or bowel complaints. She denies any lower extremity swelling. Denies any recent travel. In the ED, temperature was 98.2, pulse 95, respiratory rate 20, blood pressure 167/95, saturating at 99% on room air. WBC 11.1, bicarb 20, anion gap 16, BUN 23, creatinine 0.6, lactate 1.5. Chest x-ray independently interpreted, shows poor inspiratory effort, multifocal patchy infiltrates, more prominent on the right middle lobe. Patient started on IV steroids, and breathing treatments and started on IV antibiotics. Subjective: Patient is seen and examined at the bedside. Patient continues to feel mild shortness of breath associated with wheezing, mildly productive nonbloody cough. All Systems reviewed and pertinent positives and negatives noted in HPI, all other symptoms are negative Objective: Vital signs reviewed. General: nontoxic, in mild distress, appears at stated age Derm: warm, dry Head: atraumatic, normocephalic, symmetric Eyes: EOMI, no lid lag, anicteric sclera, pupils equal round reactive to light ENT: Nose and ears atraumatic Neck: No thyromegaly, supple Mouth: no lip lesion, mucus membranes moist Cardiovascular: S1S2 tachycardic, no murmur, no edema Lungs: Bilateral rhonchi, scattered wheeze, no accessory muscle use, conversational dyspnea Abdominal: soft, nontender to palpation, no guarding, no appreciable organomegaly Ext: no gross muscle atrophy, muscle strength muscle strength 5 out of 5 in all 4 extremities, no contractures Neuro: CN II-XII grossly intact Psych: Alert, oriented, appropriate affect Data reviewed today: Labs: WBC 11.3, hemoglobin 12.2, hematocrit 36.1, platelet count 295, sodium 138, potassium 4.1, chloride 104, bicarb 21.5, BUN 12.1, creatinine 0.6, glucose 138 Images: No new imaging Assessment and Plan: 33-year-old female with history of asthma, depression/anxiety presenting with worsening shortness of breath and failed outpatient therapy for pneumonia. # Sepsis secondary to community-acquired pneumonia #Acute asthma exacerbation #Mild anion gap metabolic acidosis secondary to above -IV ceftriaxone 2 g every 24 hours, p.o. azithromycin 500 mg daily -Sputum cultures, blood cultures, Legionella urine antigen pending -Pulmonology note reviewed, continue current management -Continue DuoNebs every 4 hours scheduled, IV Solu-Medrol 60 mg every 6 hours -Continue DuoNebs every 4 hours as needed -COVID test is negative -Tessalon Perles 100 mg 3 times daily as needed for cough #Anxiety/depression Continue Xanax 0.25 mg 4 times daily as needed, bupropion 150 daily, sertraline 100 daily #Hyperglycemia, likely steroid-induced -Continue to monitor F: None E: Replete as needed N: Regular diet A: Ambulatory DVT ppx: Lovenox 40 mg subcu daily Code Status: Full code Anticipated discharge place: Home Anticipated discharge date: Likely tomorrow I have seen and evaluated the patient today. Discussed with the resident and agree with the residents finding and plan as documented in the resident's note. Changes highlighted in blue font. Objective - Vital Signs Vital signs: Vital Signs Temp 98.2 F 06/19/24 07:12 Pulse 104 H 06/19/24 12:07 Resp 18 06/19/24 08:00 BP 113/66 06/19/24 07:12 Pulse Ox 94 L 06/19/24 07:12 FiO2 Intake & Output 06/18/24 06/19/24 06/19/24 18:59 06:59 18:59 Intake Total 200 Balance 200 Weight 104.326 kg 104.326 kg Intake: Oral 200 Other: Voiding Method Toilet # Voids 1 - Labs CBC & Chem 7: 06/19/24 03:33 06/19/24 03:33 Labs: Abnormal Lab Results - Last 24 Hours (Table) 06/18/24 06/18/24 06/19/24 Range/Units 15:58 15:58 03:33 WBC 11.1 H 11.33 H (3.8-10.6) k/uL RBC 4.07 L (4.10-5.20) X 10*6/uL Hct 36.1 L (37.2-46.3) % Immature Gran # 0.14 H (0.00-0.04) X 10*3/uL Neutrophils # 9.48 H (1.80-7.70) X 10*3/uL Eosinophils # 0 L (0.04-0.35) X 10*3/uL Carbon Dioxide 20 L (22-30) mmol/L Anion Gap (4.00-12.00) mmol/L BUN 23 H (7-17) mg/dL BUN/Creatinine Ratio (12.00-20.00) Ratio Glucose 100 H (74-99) mg/dL Total Bilirubin (0.3-1.2) mg/dL AST 37 H (14-36) U/L Albumin/Globulin Ratio (1.60-3.17) Ratio 06/19/24 Range/Units 03:33 WBC (3.8-10.6) k/uL RBC (4.10-5.20) X 10*6/uL Hct (37.2-46.3) % Immature Gran # (0.00-0.04) X 10*3/uL Neutrophils # (1.80-7.70) X 10*3/uL Eosinophils # (0.04-0.35) X 10*3/uL Carbon Dioxide 21.5 L (22-30) mmol/L Anion Gap 12.50 H (4.00-12.00) mmol/L BUN (7-17) mg/dL BUN/Creatinine Ratio 20.17 H (12.00-20.00) Ratio Glucose 178 H (74-99) mg/dL Total Bilirubin <0.2 L (0.3-1.2) mg/dL AST (14-36) U/L Albumin/Globulin Ratio 1.59 L (1.60-3.17) Ratio
[2024-06-19] MEDS: FORMOTEROL FUMARATE 20 MCG/2 ML NEBU INHALATION SCH (20:59)
[2024-06-20 03:09] LABS: Basophils # (A) 0.1 k/uL (0-0.2); Basophils % (A) 0 %; Eosinophils % (A) 0 %; HCT 37.6 % (34.0-46.0); HGB 12.1 gm/dL (11.4-16.0); Hypochromasia Slight; Lymphocytes # (A) 1.6 k/uL (1.0-4.8); Lymphocytes % (A) 9 %; MCHC 32.1 g/dL (31.0-37.0); MCV 93.4 fL (80.0-100.0); Mean Platelet Volume 7.3; Monocytes # (A) 0.6 k/uL (0-1.0); Monocytes % (A) 3 %; Neutrophils # (A) 15.5 k/uL (1.3-7.7); Neutrophils % (A) 86 %; Platelet Count 334 k/uL (150-450); RBC 4.03 m/uL (3.80-5.40); RDW 12.4 % (11.5-15.5); WBC 17.9 k/uL (3.8-10.6)
[2024-06-20 03:15] LABS: African American GFR (CKD) >90 (>60 ml/min/1.73 sqM); Anion Gap 11 mmol/L; Blood Urea Nitrogen 15 mg/dL (7-17); Calcium 9.6 mg/dL (8.4-10.2); Carbon Dioxide 17 mmol/L (22-30); Chloride 105 mmol/L (98-107); Glucose 194 mg/dL (74-99); Non-African American GFR(CKD) >90 (>60 ml/min/1.73 sqM); Potassium 4.1 mmol/L (3.5-5.1); Sodium 133 mmol/L (137-145)
[2024-06-20] MEDS: PANTOPRAZOLE 40 MG TABLET PO SCH (06:00)
[2024-06-20 07:49] VITALS: BP 135/83; RESP 18; TEMP 97.7
[2024-06-20 09:39] VITALS: PULSE 104
--- NOTE | 2024-06-20 10:36 | P.PN ---
Subjective Progress Note Date: 06/20/24 Patient is a 33-year-old white female with past medical history significant for mild intermittent asthma, hyperlipidemia, hypertension, obesity, gestational diabetes, GERD. Her PCP is Dr. Koroma. 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 States that on , she developed a persistent cough that was occasionally productive with green phlegm. There is associated intermittent fevers, with a Tmax of 103.7 F. She has been progressively more short of breath. Did go to [facility] urgent care [place] on Tuesday, and diagnosed with bronchitis. She was given a course of steroids, Z-Tarun, and breathing treatment. She has an as needed albuterol inhaler, prior to this, has not been used in years. Since , she has been using her rescue inhaler quite regularly, initially has relief for 1 to 2 hours, and then becomes short of breath with wheezing. She states that her , daughter, and son were recently sick a couple weeks ago. Negative for influenza, RSV, COVID. Chest x- ray done on admission shows a right middle lobe infiltrate. Interestingly, procalcitonin level is low at 0.17. CBC: WBC count 11.1, hemoglobin 12.8, hematocrit 37.8, platelets 315. CMP: Sodium 139, potassium 3.7, chloride 103, serum bicarb 20, BUN 23, creatinine 0.6, glucose 100. Lactic 1.5. LFTs unremarkable. Patient is currently sitting up in bed. She is on room air. She is audibly wheezing. No accessory muscle use. She has been tolerating eating and drinking. She is little tachycardic, probably related to bronchodilators. She is on a combination of DuoNebs every 4 hours with as needed DuoNebs every 2 hours. Has been started on IV Solu-Medrol. Continues on IV antibiotics in the form of azithromycin and Rocephin. Currently afebrile. Nontoxic appearance. The patient is seen today June 20, 2024 in follow-up on the regular medical floor. She is currently sitting up in bed. Awake and alert in no acute distress. She is breathing quite a bit easier today compared to yesterday. Still with a dry nonproductive cough. She is maintaining O2 saturations in the 90s on room air. No IV fluids. She is continued on DuoNeb inhalations, Pulmicort and Perforomist inhalations, Solu-Medrol. Remains on Tessalon Perles. Empiric antibiotics in the form of ceftriaxone and Zithromax. Lovenox for DVT prophylaxis. White count 17.8. Hemoglobin 12.1. Platelets 334. Sodium 133. Potassium 4.1. Bicarb 17. BUN 15. Creatinine 0.52. Objective - Vital Signs Vital signs: Vital Signs Temp 97.7 F 06/20/24 07:25 Pulse 104 H 06/20/24 09:38 Resp 18 06/20/24 08:00 BP 135/83 06/20/24 07:25 Pulse Ox 95 06/20/24 09:22 FiO2 Intake & Output 06/19/24 06/20/24 06/20/24 18:59 06:59 18:59 Intake Total 1400 450 Balance 1400 450 Intake: Oral 1400 450 Other: Voiding Method Toilet Toilet # Voids 3 1 # Bowel Movements 0 - Exam GENERAL EXAM: Alert, active, very pleasant 33-year-old female, on room air, fair ly comfortable in no apparent distress. HEAD: Normocephalic. EYES: Normal reaction of pupils, equal size. NOSE: Clear with pink turbinates. THROAT: No erythema or exudates. NECK: No masses, no JVD. CHEST: No chest wall deformity. LUNGS: Equal air entry with end expiratory wheeze. CVS: S1 and S2 normal with no audible murmur, regular rhythm. ABDOMEN: No hepatosplenomegaly, normal bowel sounds, no guarding or rigidity. SPINE: No scoliosis or deformity SKIN: No rashes CENTRAL NERVOUS SYSTEM: No focal deficits, tone is normal in all 4 extremities. EXTREMITIES: There is no peripheral edema. No clubbing, no cyanosis. Peripheral pulses are intact. - Labs CBC & Chem 7: 06/20/24 02:33 06/20/24 02:33 Labs: Abnormal Lab Results - Last 24 Hours (Table) 06/20/24 06/20/24 Range/Units 02:33 02:33 WBC 17.9 H (3.8-10.6) k/uL Neutrophils # 15.5 H (1.3-7.7) k/uL Sodium 133 L (137-145) mmol/L Carbon Dioxide 17 L (22-30) mmol/L Glucose 194 H (74-99) mg/dL Microbiology - Last 24 Hours (Table) 06/18/24 17:34 Blood Culture - Preliminary Blood Assessment and Plan Assessment: Right middle lobe community-acquired pneumonia, chest x-ray taken on arrival shows right middle lobe infiltrate. Negative for influenza, RSV, COVID. Acute asthma exacerbation, secondary to above Acute dyspnea Sinus tachycardia, probably exacerbated by medication effect and beta-2 agonist. History of hyperlipidemia History of GERD without esophagitis Obesity, with a BMI of 36 kg/m History of anxiety Plan: The patient was seen and evaluated Labs and medications reviewed Currently stable and on room air Cleared for discharge Complete a prednisone taper Continue Symbicort and albuterol HFA No need for antibiotics Procalcitonin negative Dax Ventura for her cough Follow-up with Dr. Perez in our office in 1 week This patient was seen independently by the pulmonary nurse practitioner addressing pulmonary issues I have personally seen and examined the patient, performed the documentation and the assessment and plan as written. Number of minutes spent on the visit: 24.
--- NOTE | 2024-06-20 11:15 | P.DS ---
Providers Date of admission: 06/18/24 16:46 Expected date of discharge: 06/20/24 Attending physician: Roberto Brown Consults: 06/18/24 16:46 Consult Physician Routine Consulting Provider: Urbano Perez Consult Reason/Comments: asthma, pneumonia Do you want consulting provider notified?: Yes [facility] Course: Discharge Diagnosis: # Sepsis secondary to community-acquired pneumonia #Acute asthma exacerbation #Mild anion gap metabolic acidosis #Anxiety/depression #Hyperglycemia, likely steroid-induced Leukocytosis, steroid-induced Hospital Course: Patient is a 33-year-old female with history of asthma, depression/anxiety presenting with worsening shortness of breath and failed outpatient therapy for pneumonia. She claims that she started having fevers and chills and cough on . Her daughter had recently gotten over bronchitis/upper respiratory infection. She went to an urgent care and was given antibiotics and steroids. She continued to have fevers although a total Tuesday. This morning she woke up and had worsening shortness of breath and audible wheezing. She claims that she uses as needed albuterol for asthma, and has not used it in a long time. She denies any sputum production. She claims that she also has nausea, had 1 episode of vomiting, some right upper quadrant abdominal pain with coughing. She denies any urinary or bowel complaints. She denies any lower extremity swelling. Denies any recent travel. In the ED, temperature was 98.2, pulse 95, respiratory rate 20, blood pressure 167/95, saturating at 99% on room air. WBC 11.1, bicarb 20, anion gap 16, BUN 23, creatinine 0.6, lactate 1.5. Chest x-ray independently interpreted, shows poor inspiratory effort, multifocal patchy infiltrates, more prominent on the right middle lobe. Patient started on IV Solu-Medrol, and breathing treatments with DuoNebs and started on IV antibiotics. Pulmonology consulted. Blood culture came back negative. Patient reports improved shortness of breath and cough. Reports no fever, chills, nausea, vomiting. Vital stable. Patient otherwise hemodynamically stable for discharge. Discharged on oral antibiotics and steroid. Patient to continue with azithromycin 500 mg p.o. daily for 1 day, cefdinir 300 mg p.o. twice daily for 2 days, prednisone 40 mg p.o. daily for 3 days, Symbicort inhaler 2 puffs twice daily and Tessalon Perles for cough as needed. Patient to continue with her regular home medications as directed. Patient to follow-up with PCP and pulmonology within 1 week. Patient advised with instruction/handout for asthma, and community-acquired pneumonia. Vital signs reviewed. General: nontoxic, in mild distress, appears at stated age Derm: warm, dry Head: atraumatic, normocephalic, symmetric Eyes: EOMI, no lid lag, anicteric sclera, pupils equal round reactive to light ENT: Nose and ears atraumatic Neck: No thyromegaly, supple Mouth: no lip lesion, mucus membranes moist Cardiovascular: S1S2 tachycardic, no murmur, no edema Lungs: CTAB, no wheeze, rales or crackles. No accessory muscle use Abdominal: soft, nontender to palpation, no guarding, no appreciable organomegaly Ext: no gross muscle atrophy, muscle strength muscle strength 5 out of 5 in all 4 extremities, no contractures Neuro: CN II-XII grossly intact Psych: Alert, oriented, appropriate affect A total of 36 minutes of time were spent preparing this complex discharge summary. Patient was discharged on 06/20/2024 at 937. I have seen and evaluated the patient today. Discussed with the resident and agree with the residents finding and plan as documented in the resident's note. Changes highlighted in blue font. Patient Condition at Discharge: Stable Plan - Discharge Summary Discharge Rx Participant: Yes New Discharge Prescriptions: New Azithromycin [Zithromax] 500 mg PO DAILY@1800 #1 tab Cefdinir 300 mg PO Q12HR #4 cap predniSONE [Deltasone] 40 mg PO DAILY #6 tab Budesonide/Formoterol Fumarate [Symbicort 80-4.5 Mcg Inhaler] 2 puff INHALATION BID #1 each Benzonatate [Tessalon Perles] 100 mg PO TID PRN #20 cap PRN Reason: Cough Continue Sertraline [Zoloft] 100 mg PO DAILY ALPRAZolam [Xanax] 0.25 mg PO QID PRN PRN Reason: Anxiety buPROPion XL [Wellbutrin XL] 150 mg PO DAILY Discontinued methylPREDNISolone [Medrol Dose Pack] See Taper PO DIRECTED Azithromycin [Zithromax Z Pack] See Taper PO DIRECTED Discharge Medication List ALPRAZolam [Xanax] 0.25 mg PO QID PRN 06/18/24 [History] Sertraline [Zoloft] 100 mg PO DAILY 06/18/24 [History] buPROPion XL [Wellbutrin XL] 150 mg PO DAILY 06/18/24 [History] Azithromycin [Zithromax] 500 mg PO DAILY@1800 #1 tab 06/20/24 [Rx] Benzonatate [Tessalon Perles] 100 mg PO TID PRN #20 cap 06/20/24 [Rx] Budesonide/Formoterol Fumarate [Symbicort 80-4.5 Mcg Inhaler] 2 puff INHALATION BID #1 each 06/20/24 [Rx] Cefdinir 300 mg PO Q12HR #4 cap 06/20/24 [Rx] predniSONE [Deltasone] 40 mg PO DAILY #6 tab 06/20/24 [Rx] Follow up Appointment(s)/Referral(s): Adrian Koroma MD [Primary Care Provider] - 1-2 days Urbano Perez DO [Doctor of Osteopathic Medicine] - 1 Week (06/28/24 @ 0900) Patient Instructions/Handouts: Asthma (DC), Community Acquired Pneumonia (DC) Activity/Diet/Wound Care/Special Instructions: Follow up as directed, sooner for worsening symptoms, problems, or concerns. Discharge Disposition: HOME SELF-CARE
== END 2024-06-20 11:32 | disposition home or self-care (01) ==
LOC: EC 15:12 → 6NMEDSUR 16:46
PROVIDERS: ADMIT Student in an Organized Health Care Education/Training Program; ATTEND Student in an Organized Health Care Education/Training Program
DX: A41.9 Sepsis, unspecified organism (principal); J18.9 Pneumonia, unspecified organism; J45.21 Mild intermittent asthma with (acute) exacerbation; E87.20 Acidosis, unspecified; F32.A Depression, unspecified; F41.9 Anxiety disorder, unspecified; R73.9 Hyperglycemia, unspecified; R10.11 Right upper quadrant pain; I10 Essential (primary) hypertension; E78.5 Hyperlipidemia, unspecified; T38.0X5A Adverse effect of glucocorticoids and synthetic analogues, initial encounter; K21.9 Gastro-esophageal reflux disease without esophagitis; E66.9 Obesity, unspecified; Z68.36 Body mass index [BMI] 36.0-36.9, adult; Z86.32 Personal history of gestational diabetes; Z79.899 Other long term (current) drug therapy; Z91.09 Other allergy status, other than to drugs and biological substances; Z11.52 Encounter for screening for COVID-19; Z11.59 Encounter for screening for other viral diseases
CPT/HCPCS: 36415; 71046; 80048; 80053; 83605; 83735; 84145; 85025; 87040; 87449; 87636; 93005; 94640; 94760; 96361; 96365; 96366; 96367; 96372; 96375; 96376; 99285

== ENCOUNTER 2025-01-13 11:45 | Emergency (ER) | payer MEDICAID ==
--- NOTE | 2025-01-13 11:58 | ED ---
Head Injury HPI - General Chief complaint: Head Injury Stated complaint: Head injury Time Seen by Provider: 01/13/25 11:57 Source: patient, RN notes reviewed Mode of arrival: ambulatory Limitations: no limitations - History of Present Illness Initial comments: 34-year-old female presented the ER for evaluation of a head injury. Patient states she was on heard [employer]'s bunk bed attempting to make the bed when she accidentally straightened her back and hit the ceiling fan. She does report a brief period of "blacking out". She believes this was only 1 to 2 seconds. She is not on blood thinners. Patient does report a laceration to her head. Tetanus status unknown. Patient does states since incident she has been having intermittent fuzzy vision out of her left eye. Patient denies any nausea, vomiting, dizziness, lightheadedness, syncope or lethargy since incident. No other injuries or complaints at this time. - Related Data Home Medications Medication Instructions Recorded Confirmed ALPRAZolam [Xanax] 0.25 mg PO QID PRN 06/18/24 06/18/24 Sertraline [Zoloft] 100 mg PO DAILY 06/18/24 06/18/24 buPROPion XL [Wellbutrin XL] 150 mg PO DAILY 06/18/24 06/18/24 Previous Rx's Medication Instructions Recorded Azithromycin [Zithromax] 500 mg PO DAILY@1800 #1 tab 06/20/24 Benzonatate [Tessalon Perles] 100 mg PO TID PRN #20 cap 06/20/24 Budesonide/Formoterol Fumarate 2 puff INHALATION BID #1 each 06/20/24 [Symbicort 80-4.5 Mcg Inhaler] Cefdinir 300 mg PO Q12HR #4 cap 06/20/24 predniSONE [Deltasone] 40 mg PO DAILY #6 tab 06/20/24 Allergies/Adverse reactions: Allergies Allergy/AdvReac Type Severity Reaction Status Date / Time Environmental Allergy Mild CONGESTION Uncoded 01/13/25 11:49 Review of Systems ROS Statement: Those systems with pertinent positive or pertinent negative responses have been documented in the HPI. ROS Other: All systems not noted in ROS Statement are negative. Past Medical History Past Medical History: Asthma, GERD/Reflux, Hyperlipidemia Additional Past Medical History / Comment(s): Gestational Diabetes, IBS, No meds for Hyperlipidemia-"watching for right now." "HTN while ." History of Any Multi-Drug Resistant Organisms: None Reported Past Surgical History: Cholecystectomy, Orthopedic Surgery Additional Past Surgical History / Comment(s): sinus surgery , gallbladder removed 02/11/2021, wisdom teeth removed. "right carpal tunnel sx." Past Anesthesia/Blood Transfusion Reactions: No Reported Reaction, Motion Sickness, Postoperative Nausea & Vomiting (PONV) Additional Past Anesthesia/Blood Transfusion Reaction / Comment(s): No hx of blood transfusion. Past Psychological History: Anxiety Smoking Status: Never smoker Past Alcohol Use History: Rare Past Drug Use History: None Reported - Past Family History Mother Family Medical History: Diabetes Mellitus, Hyperlipidemia, Hypertension Father Family Medical History: Diabetes Mellitus, Hyperlipidemia, Hypertension, Myocardial Infarction (AR) Additional Family Medical History / Comment(s): stents, smoker General Exam Limitations: no limitations General appearance: alert, in no apparent distress Head exam: Present: normocephalic, other (There is a 2 cm laceration to left frontal scalp about 2 cm posterior to hairline) Eye exam: Present: normal appearance, PERRL, EOMI. Absent: scleral icterus, conjunctival injection, periorbital swelling Pupils: Present: normal accommodation ENT exam: Present: normal exam, normal oropharynx, mucous membranes moist, TM's normal bilaterally, other (No raccoon eyes, Aguilar sign or hemotympanums) Neck exam: Present: normal inspection. Absent: tenderness, meningismus, lymphadenopathy Respiratory exam: Present: normal lung sounds bilaterally. Absent: respiratory distress, wheezes, rales, rhonchi, stridor Cardiovascular Exam: Present: regular rate, normal rhythm, normal heart sounds. Absent: systolic murmur, diastolic murmur, rubs, gallop, clicks Neurological exam: Present: alert, oriented X3, CN II-XII intact, other (GCS 15. No acute neurological findings on exam.) Skin exam: Present: warm, dry, intact, normal color. Absent: rash Course Vital Signs 01/13/25 01/13/25 01/13/25 11:46 12:30 12:49 Temperature 98.3 F 98.0 F Pulse Rate 101 H 95 92 Respiratory 17 20 20 Rate Blood Pressure 140/97 119/84 123/80 O2 Sat by Pulse 97 98 99 Oximetry Procedures - Laceration Laceration #1 Consent Obtained: verbal consent Indication: laceration Site: scalp Size (cm): 2 Description: linear Depth: simple, single layer Pre-repair: wound explored, irrigated extensively, deep structures intact Type of Sutures: other (Dermal roger) Number of Sutures: 1 Medical Decision Making - Medical Decision Making Was pt. sent in by a medical professional or institution ([facility], [employer]ING [employer]SEM[employer]ER, urgent care, hospital, or prison...) When possible be specific @ -No Did you speak to anyone other than the patient for history (EMS, parent, family, police, friend...)? What history was obtained from this source @ -No Did you review nursing and triage notes (agree or disagree)? Why? @ -I reviewed and agree with nursing and triage notes Were old charts reviewed (outside hosp., previous admission, EMS record, old EKG, old radiological studies, urgent care reports/EKG's, prison records)? Report findings @ -No old charts were reviewed Differential Diagnosis (chest pain, altered mental status, abdominal pain women, abdominal pain men, vaginal bleeding, weakness, fever, dyspnea, syncope, headache, dizziness, GI bleed, back pain, seizure, CVA, palpatations, mental health, musculoskeletal)? @ -Contusion, hematoma, intracranial hemorrhage, skull fracture, laceration, concussion this list is not meant to be all-inclusive EKG interpreted by me (3pts min.). @ -None done X-rays interpreted by me (1pt min.). @ -None done CT interpreted by me (1pt min.). @ -CT brain negative for acute intracranial process. U/S interpreted by me (1pt. min.). @ -None done What testing was considered but not performed or refused? (CT, X-rays, U/S, labs)? Why? @ -None What meds were considered but not given or refused? Why? @ -None Did you discuss the management of the patient with other professionals (professionals i.e. [facility], AWNING ASSEMBLER, lab, RT, psych nurse, web content & social media manager, real estate lawyer, teacher, inshore undersea warfare officer, egg caser)? Give summary @ -No Was smoking cessation discussed for >3mins.? @ -No Was critical care preformed (if so, how long)? @ -No Were there social determinants of health that impacted care today? How? (Home lessness, low income, unemployed, alcoholism, drug addiction, transportation, low edu. Level, literacy, decrease access to med. care, [facility], rehab)? @ -No Was there de-escalation of care discussed even if they declined (Discuss DNR or withdrawal of care, Hospice)? DNR status @ -No What co-morbidities impacted this encounter? (DM, HTN, Smoking, COPD, CAD, Cancer, CVA, ARF, Chemo, Hep., AIDS, mental health diagnosis, sleep apnea, morbid obesity)? @ -None Was patient admitted / discharged? Hospital course, mention meds given and route, prescriptions, significant lab abnormalities, going to OR and other pertinent info. @ -Discharge. 34 female presented the ER for evaluation of a head injury. Vitals within acceptable limits. Patient in no signs of acute distress. No acute neurological findings on exam. No raccoon eyes, Aguilar sign or hemotympanums. There is a 2 cm laceration to right frontal scalp with minimal bleeding present, this was closed with a dermal staple, see note above. Given patient reporting left visual defects and brief period of "blockingout" CT brain was performed and negative for acute intracranial process. Patient provided with tetanus booster and Tylenol for pain control in the ER. I advised staple removal in 5 to 7 days. Appropriate follow-up and return parameters discussed. Patient discharged stable condition. Patient verbally expressed understanding and agreement with care plan. Case discussed with ED attending, Dr. Aly. Undiagnosed new problem with uncertain prognosis? @ -No Drug Therapy requiring intensive monitoring for toxicity (Heparin, Nitro, Insulin, Cardizem)? @ -No Were any procedures done? @ -Yes Diagnosis/symptom? @ -Head injury/laceration Acute, or Chronic, or Acute on Chronic? @ -Acute Uncomplicated (without systemic symptoms) or Complicated (systemic symptoms)? @ -Uncomplicated Side effects of treatment? @ -No Exacerbation, Progression, or Severe Exacerbation? @ -No Poses a threat to life or bodily function? How? (Chest pain, [place], AR, pneumonia, PE, COPD, DKA, ARF, appy, cholecystitis, CVA, Diverticulitis, Homicidal, Suicidal, threat to staff... and all critical care pts) @ -No - Radiology Data Radiology results: report reviewed, image reviewed Disposition Clinical Impression: Head injury, Laceration Disposition: HOME SELF-CARE Condition: Stable Instructions (If sedation given, give patient instructions): Staple Care (ED) Additional Instructions: Have staple removed in 3 to 5 days. Follow-up with PCP. Return to the ER for any new or worsening concerns. Is patient prescribed a controlled substance at d/c from ED?: No Referrals: Adrian Koroma MD [Primary Care Provider] - 1-2 days Time of Disposition: 12:45
[2025-01-13] MEDS: ACETAMINOPHEN TAB 325 MG TAB PO STA (12:00)
[2025-01-13] MEDS: DIPH,PERTUS(ACELL)TETVAC-LF 0.5 ML VIAL IM ONE (12:01)
[2025-01-13 12:31] VITALS: RESP 20
--- NOTE | 2025-01-13 12:36 | CT ---
EXAMINATION TYPE: CT brain wo con DATE OF EXAM: 01/13/2025 12:26 PM COMPARISON: 05/30/2014 CLINICAL INDICATION: Female, 34 years old with history of head injury left eye fuzzy vision no thinne rs, Head injury with left frontal lobe laceration fuzzy vision no thinners TECHNIQUE: CT of the brain is performed utilizing 3 mm thick sections through the posterior fossa and 3 mm thick sections through the remaining calvarium. Study is performed within 24 hours of arrival to the hospital. Contrast used: mL of , (none if empty) CT DLP: 1215.4 mGycm, Automated exposure control for dose reduction was used. FINDINGS: No abnormal hyperdensity is present to suggest an acute intracranial hemorrhage. No mass lesion is evident. No acute infarcts are evident. Ventricles and sulci are appropriate for the patient age. Paranasal sinuses and mastoid air cells within the [id number] are clear. No acute osseous abnormality evident IMPRESSION: 1. No acute intracranial process. Follow up MRI can be performed as clinically indicated. [facility], , 01/13/2025 12:34 PM
[2025-01-13 12:53] VITALS: BP 123/80; PULSE 92; TEMP 98
== END 2025-01-13 12:52 | disposition home or self-care (01) ==
LOC: EC 11:45
DX: S01.01XA Laceration without foreign body of scalp, initial encounter (principal); Z23 Encounter for immunization; Z91.09 Other allergy status, other than to drugs and biological substances; W22.8XXA Striking against or struck by other objects, initial encounter
CPT/HCPCS: 12001; 70450; 90471; 90715; 99284

== ENCOUNTER → 2025-01-29 | Outpatient (CLI) | payer MEDICAID ==
[2025-01-29 15:05] LABS: HCT 39.2 % (37.2-46.3); HGB 13.1 g/dL (12.0-15.0); MCH 30.3 pg (27.0-32.0); MCHC 33.4 g/dL (32.0-37.0); MCV 90.7 FL (80.0-97.0); NRBC Per 100 WBC 0 X 10*3/uL (0.00-0.01); Platelet Count 314 X 10*3/uL (140-440); RBC 4.32 X 10*6/uL (4.10-5.20); RDW 12.5 % (11.5-14.5); WBC 12.46 X 10*3/uL (4.50-10.00)
[2025-01-29 15:30] LABS: ALT 18 U/L (8-44); AST 20 U/L (13-35); Albumin 4.5 g/dL (3.8-4.9); Albumin/Globulin Ratio 1.61 Ratio (1.60-3.17); Alkaline Phosphatase 59 U/L (41-126); Calcium 9.7 mg/dL (8.7-10.3); Carbon Dioxide 21.4 mmol/L (21.6-31.8); Chloride 102 mmol/L (96-109); Chol/HDL Ratio 4.51 Ratio; Globulin 2.8 g/dL (1.6-3.3); Glucose 89 mg/dL (70-110); LDL Cholesterol,Calculated 72.8 mg/dL (0.0-131.0); Potassium 4.1 mmol/L (3.5-5.5); Sodium 138 mmol/L (135-145); Total Bilirubin 0.3 mg/dL (0.3-1.2); Total Protein 7.3 g/dL (6.2-8.2)
== END | disposition home or self-care (01) ==
LOC: LABWHC1 11:10
PROVIDERS: ATTEND Family Medicine
DX: Z00.00 Encounter for general adult medical examination without abnormal findings (principal); Z86.32 Personal history of gestational diabetes
CPT/HCPCS: 36415; 80053; 80061; 83036; 85027